=== PATIENT | female | born 1940 | race Caucasian/White ===

== ENCOUNTER 2020-05-05 09:40 | Outpatient (CLI) | payer MEDICARE, SELFPAY ==
--- NOTE | ~2020-05-05 | US_ITS ---
EXAMINATION: US carotid duplex BI DATE: 05/05/2020 10:18 INDICATION: Carotid stenosis TECHNIQUE: Grayscale, color Doppler, and pulsed Doppler images of the cervical carotid arteries were obtained. The degree of vessel stenosis is placed in one of the following categories: normal, <50%, 5 0-69%, >=70% but less than near-occlusion, near-occlusion, or total occlusion. Note that percent sten osis relative to normal distal artery lumen diameter is indirectly measured from velocity measurement s as described by Teodoro, et al. Radiology 2003; 229:340-346. COMPARISON: None. FINDINGS: RIGHT: The right common carotid artery (CCA) peak systolic velocity (PSV) is 72 cm/s. The right internal car otid artery (ICA) PSV is 85 cm/s. The right ICA end-diastolic velocity (EDV) is 20 cm/s. The right IC A/CCA PSV ratio is 12. Grayscale and color Doppler images yield an estimate of <50% diameter reductio n from plaque in the ICA. The external carotid artery (ECA) PSV is 126 cm/s. There is antegrade flow in the right vertebral artery. LEFT: The left CCA PSV is 84 cm/s. The left ICA PSV is 70 cm/s. The left ICA EDV is 20 cm/s. The left ICA/C CA PSV ratio is 0.8. Grayscale and color Doppler images yield an estimate of <50% diameter reduction from minimal plaque in the ICA. The ECA PSV is 688 cm/s. There is antegrade flow in the left vertebra l artery. IMPRESSION: 1. <50% stenosis in the right internal carotid artery. 2. <50% stenosis in the left internal carotid artery. Reviewed, dictated and finalized at location A.
== END 2020-05-05 09:41 | disposition home or self-care (01) ==
PROVIDERS: PCP Family Medicine; Visit Provider Physician Assistant
DX: I65.23 Occlusion and stenosis of bilateral carotid arteries (principal)
CPT/HCPCS: 93880

== ENCOUNTER 2020-09-09 13:43 | Outpatient (CLI) | payer MEDICARE, SELFPAY ==
--- NOTE | ~2020-09-09 | CT_ITS ---
EXAMINATION: CT abdomen pelvis wo/w con DATE: 09/09/2020 14:32 INDICATION: Gross hematuria TECHNIQUE: Computed tomography (CT) of the abdomen and pelvis was performed without and subsequently with 130 cc Omnipaque 350 intravenous contrast. Automated exposure control and iterative reconstructi on technique were employed. Exam dose: 613.15 mGy-cm total exam DLP. COMPARISON: None. FINDINGS: The lung bases are clear of infiltrate or consolidation. Heart size is normal. There is trace pericardial fluid. Coronary artery calcifications. Small sliding hiatal hernia. There is no hepatic suspicious solid mass. There is a small cyst of the lateral segment of the left h epatic lobe. No bile duct dilatation. The gallbladder is unremarkable in appearance. No pancreatic ma ss lesion or calcification or ductal dilatation. Normal splenic size. Normal morphology of the adrenal glands. There is a 7 cm irregular mass of the upper pole of the right kidney most consistent with hypernephro ma. No other urinary tract suspicious mass lesion is evident. There are a couple of small left renal cyst . No hydroureteronephrosis. No urinary tract calculus is evident. Multiple calcified uterine fibroids. There is atherosclerotic calcification but normal caliber of the abdominal aorta. No abdominal aortic aneurysm. No intraperitoneal or retroperitoneal or pelvic mass lesion or adenopathy or ascites is no last otherwise. No bowel obstruction, bowel wall thickening, pneumatosis or intraperitoneal free air is detected. There are degenerative changes of the thoracic and lumbar spine including particularly prominent dege nerative disc disease at L1-2, L3-4 and L4-5. No suspicious osteolytic or osteoblastic lesions are noted. IMPRESSION: 7 cm likely hypernephroma of upper pole of right kidney Small sliding hiatal hernia Small lateral segment left hepatic cyst and a couple of very small left renal cysts Calcified uterine fibroids Reviewed, dictated and finalized at Location A. Dr. Verdin left a detailed report including the finding of 7 cm hypernephroma of the upper pole right k idney on the answering service voicemail for Dr. Olmstead and Jose A Miller on 09/09/2020 at 1705 hours Reviewed, dictated and finalized at location A. HAND IMPRESSION: 7 cm likely hypernephroma of upper pole of right kidney Small sliding hiatal hernia Small lateral segment left hepatic cyst and a couple of very small left renal c ysts Calcified uterine fibroids
[2020-09-09 14:16] LABS: Estimated Glomerular Filt Rate 60
== END 2020-09-09 13:44 | disposition home or self-care (01) ==
LOC: ANHIMG 13:45
PROVIDERS: PCP Family Medicine; Visit Provider Physician Assistant
DX: R31.0 Gross hematuria (principal); K44.9 Diaphragmatic hernia without obstruction or gangrene; D25.9 Leiomyoma of uterus, unspecified
CPT/HCPCS: 74178; Q9967

== ENCOUNTER → 2020-09-19 15:31 | Outpatient (CLI) | payer MEDICARE, SELFPAY ==
--- NOTE | ~2020-09-19 | XR_ITS ---
XR chest 2V DATE: 09/19/2020 16:00 INDICATION: Renal mass TECHNIQUE: PA and lateral views COMPARISON: None FINDINGS: Normal heart size. No hilar or mediastinal enlargement. No pulmonary infiltrate or consol idation, pulmonary vascular congestion or pleural effusion or pneumothorax. Bilateral hyperinflation , consistent with COPD. There is focal soft tissue asymmetric density in the right lateral apical ar ea. Differential diagnosis includes scarring and pulmonary or pleural mass lesion. Comparison with prior chest radiographs or CT thorax dating back 2 or more years or, if unavailable, CT thorax is re commended. Old healed right mid clavicular shaft fracture. There is degenerative spurring and dextroscoliosis of the thoracic spine. Diffuse osteopenia. IMPRESSION: COPD Focal asymmetric density overlying right lateral apical area; comparison with prior chest radiographs or CT thorax is recommended; if not available, consider CT thorax Reviewed, dictated and finalized at location B. D CROP FARMWORKER IMPRESSION: COPD Focal asymmetric density overlying right lateral apical area; comparison with p rior chest radiographs or CT thorax is recommended; if not available, consider CT thorax
== END ==
PROVIDERS: PCP Family Medicine; Visit Provider Urology
DX: N28.89 Other specified disorders of kidney and ureter (principal); J44.9 Chronic obstructive pulmonary disease, unspecified
CPT/HCPCS: 71046

== ENCOUNTER 2020-09-24 15:07 | Outpatient (CLI) | payer MEDICARE, SELFPAY ==
--- NOTE | ~2020-09-24 | MM_ITS ---
EXAMINATION: MM screening francine BI w jessie HISTORY: Screening mammogram TECHNIQUE: Craniocaudal and mediolateral oblique 3-D tomosynthesis images were obtained and synthetic 2-D images were generated. CAD analysis was submitted and interpreted. COMPARISON: 09/05/2019, 04/24/2015 bilateral digital screening mammogram examinations 05/01/2015 diagnostic left digital mammogram BREAST PARENCHYMAL COMPOSITION: The breasts are heterogeneously dense, which may obscure small masses . FINDINGS: There is no evidence of suspicious mass, calcification, or architectural distortion to sugg est malignancy in either breast. There has been no suspicious interval change. IMPRESSION: 1. No mammographic evidence of malignancy. 2. Recommend routine screening mammography in one year. BI-RADS Category 1: Negative Reviewed, dictated and finalized at location A. ERY WRECKER OPERATOR
== END 2020-09-24 15:08 | disposition home or self-care (01) ==
PROVIDERS: PCP Family Medicine; Visit Provider Physician Assistant
DX: Z12.31 Encounter for screening mammogram for malignant neoplasm of breast (principal)
CPT/HCPCS: 77063; 77067

== ENCOUNTER 2020-10-03 11:47 | Outpatient (CLI) | payer MEDICARE, SELFPAY ==
--- NOTE | 2020-10-03 12:54 | ECG_ITS ---
Measurements Intervals Vill[place] Rate: 55 P: 79 IL: 177 QRS: 63 QRSD: 85 T: 65 QT: 375 QTc: 359 Interpretive Statements SINUS BRADYCARDIA INCOMPLETE RIGHT BUNDLE BRANCH BLOCK BASELINE ARTIFACT- I, II, III, AVR, AVL, AVF BORDERLINE ECG Electronically Signed On 10-03-2020 13:00:01 BOTTOM PRESSER by Cristiano Gonzalez D.O.
[2020-10-03 13:15] LABS: Basophils Absolute Auto 0.1 K/mm3 (0.0-0.1); Basophils Percent Auto 0.7 % (0.2-1.2); Eosinophils Absolute Auto 0.1 K/mm3 (0-0.3); Eosinophils Percent Auto 1.6 % (0-4.4); Hematocrit 39.4 % (37.0-47.0); Hemoglobin 12.8 g/dL (12.0-15.0); Immature Granulocyte Absolute 0.02 K/mm3 (0.00-0.031); Immature Granulocyte Percent A 0.3 % (0-0.5); Lymphocytes Absolute Auto 1.69 K/mm3 (0.9-3.2); Lymphocytes Percent Auto 24.2 % (18.3-44.2); Mean Corpuscular HGB Conc 32.5 g/dl (32-36); Mean Corpuscular Hemoglobin 30.9 pg (26-34); Mean Corpuscular Volume 95.2 fl (80-100); Mean Platelet Volume 10.2 fl (7.4-10.4); Monocytes Absolute Auto 0.6 K/mm3 (0.1-0.6); Monocytes Percent Auto 7.9 % (2.6-8.5); Neutrophils Absolute Auto 4.6 K/mm3 (1.3-6.7); Neutrophils Percent Auto 65.3 % (45.5-73.1); Platelet Count Result 222 k/mm3 (150-375); Red Blood Count 4.14 M/mm3 (4.2-5.4); Red Cell Distribution Width 12.4 % (11.5-14.5)
[2020-10-03 13:24] LABS: Alanine Aminotransferase 24 U/L (4-35); Albumin Level 4.4 g/dL (3.5-5.1); Alkaline Phosphatase 70 U/L (38-126); Anion Gap 5 mmol/L (8-16); Aspartate Amino Transferase 34 U/L (14-36); Bilirubin,Total 0.7 mg/dL (0.2-1.3); Blood Urea Nitrogen 16 mg/dL (7-17); Calcium 9.7 mg/dL (8.4-10.2); Carbon Dioxide 33 mmol/L (22-30); Chloride 100 mmol/L (98-107); Estimated Glomerular Filt Rate > 60; Glucose 107 mg/dL (65-105); Potassium 4.5 mmol/L (3.4-5.0); Sodium 138 mmol/L (137-145)
[2020-10-03 13:25] LABS: INR 0.9; Prothrombin Time 12.9 Seconds (11.1-14.7)
[2020-10-03 13:26] LABS: Partial Thromboplastin Time 27.1 SECONDS (22.3-36.8)
== END 2020-10-03 11:48 | disposition home or self-care (01) ==
LOC: ANHSURGERY 11:51
PROVIDERS: PCP Family Medicine; Visit Provider Urology
DX: Z01.818 Encounter for other preprocedural examination (principal); N28.89 Other specified disorders of kidney and ureter; I10 Essential (primary) hypertension; I45.10 Unspecified right bundle-branch block
CPT/HCPCS: 36415; 80053; 85025; 85610; 85730; 86850; 86900; 86901; 87086; 93005

== ENCOUNTER 2020-10-04 00:54 | Outpatient (CLI) | payer MEDICARE, SELFPAY ==
[2020-10-04 19:14] LABS: SARS-CoV-2 RNA PCR Negative
== END 2020-10-04 00:55 | disposition home or self-care (01) ==
LOC: ANHCOVIDDT 00:54
PROVIDERS: PCP Family Medicine; Visit Provider Urology
DX: Z01.818 Encounter for other preprocedural examination (principal); Z20.828 Contact with and (suspected) exposure to other viral communicable diseases
CPT/HCPCS: 87635; C9803; U0003

== ENCOUNTER 2020-10-07 13:03 | Inpatient (IN) | payer MEDICARE, SELFPAY ==
[2020-10-03 12:52] VITALS: BP 147/47; PULSE 57; RESP 16; TEMP 37.2; O2SAT 100; BMI 20.1
[2020-10-07] VITALS (15 sets, daily range): BP systolic 100–159; BP diastolic 47–77; PULSE 45–66; RESP 7–18; TEMP 35.7–37; O2SAT 94–100
--- NOTE | ~2020-10-07 | CT_ITS ---
EXAMINATION: CT abdomen pelvis wo/w con DATE: 10/07/2020 16:01 INDICATION: Patient with postoperative abdominal distention status post hand-assisted laparoscopic ri ght nephrectomy and right adrenalectomy today TECHNIQUE: Computed tomography (CT) of the abdomen and pelvis was performed without intravenous contr ast. CT of the abdomen and pelvis was then performed with a total of 100 mL Omnipaque 350 intravenous contrast. The dose-length product (DLP) was 663.19 mGy-cm. Automated exposure control and iterative reconstruction technique were employed. COMPARISON: 09/09/2020 FINDINGS: Small pleural effusions are present, left greater than right which causes passive dependent atelectasis of the visualized lung bases. Cardiomegaly is noted. There is a moderate amount of free intraperitoneal gas throughout the abdomen. Gas is also seen in the nephrectomy bed, as well as throu ghout the abdominal wall extending into the pelvis and bilateral proximal thighs. There is a moderate ly large crescentic subcutaneous gas collection in the right flank extending into the anterior pelvis . There is a small volume of ascites in the right upper quadrant which tracks into the pelvis. The li juan, spleen, pancreas, gallbladder, and left adrenal gland are normal. Cysts of the left kidney measu re up to 7 mm. No pathologically enlarged abdominal or pelvic lymph nodes are identified. There is a small sliding hiatal hernia. No dilated loops of bowel are evident. The bladder is decompressed by a Antonio catheter. There are calcified uterine fibroids. There is severe lumbar spondylosis. IMPRESSION: 1. Changes of right nephrectomy and adrenalectomy including moderate amount of free intraperitoneal g as, small volume of abdominal and pelvic ascites, and extensive subcutaneous gas throughout the abdom en and pelvis, extending of the proximal thighs, and including a large crescentic gas collection of t he right flank extending into the anterior pelvis. Reviewed, dictated and finalized at location A. KER AND CUTTER CONTACT LENS IMPRESSION: 1. Changes of right nephrectomy and adrenalectomy including moderate amount of free intraperitoneal gas, small volume of abdominal and pelvic ascites, and ext ensive subcutaneous gas throughout the abdomen and pelvis, extending of the pro ximal thighs, and including a large crescentic gas collection of the right flan k extending into the anterior pelvis.
[2020-10-07] MEDS: LACTATED RINGERS 1,000 ML 30 ML IV CONT ×2 (06:20→10:27)
--- NOTE | 2020-10-07 06:53 | WPDHPUPDATE1 ---
History and Physical Update Update Date/Time: 10/07/20 06:53 History and Physical has been reviewed, including an updated exam of the patient. There are NO changes in the patient's condition. Risks, benefits, and alternatives have been discussed and questions answered. Patient agrees to proceed with procedure. Proceed with GALLITO right nephrectomy
--- NOTE | 2020-10-07 06:57 | WPDANESEPPF ---
Anes - Initial Pre Proc Eval Procedure: Operation Date: 10/07/20 07:30 Proposed Procedures p Hand-Assisted Laparoscopic Right Radical Nephrectomy - Jabier Mendoza MD Date/Time: 10/07/20 06:57 Surgeon: Jabier Mendoza MD Pre Op Diagnosis: Right Kidney Mass Patient Data Age: 79 Gender: F Height: 5 ft 5 in Weight: 53.8 kg Last Vital Signs Temp 99.0 F 10/03/20 12:52 Pulse 57 L 10/03/20 12:52 Resp 16 10/03/20 12:52 BP 147/47 H 10/03/20 12:52 Pulse Ox 100 10/03/20 12:52 Allergies Allergy/AdvReac Type Severity Reaction Status Date / Time No Known Allergies Allergy Unknown Verified 10/07/20 06:00 Home Medications Medication Instructions Recorded Confirmed Type valsartan 160 mg tablet 160 mg PO DAILY #90 tablet 02/05/20 10/07/20 Rx levothyroxine 75 mcg tablet 75 mcg PO DAILY #90 tablet 03/03/20 10/07/20 Rx alendronate 70 mg tablet 70 mg PO WEEKLY #12 tablet 08/04/20 10/07/20 Rx acebutolol 200 mg PO HS 10/03/20 10/07/20 History aspirin [Adult Low Dose Aspirin] 81 mg PO EVERY OTHER DAY 10/03/20 10/07/20 History atorvastatin 20 mg PO HS 10/03/20 10/07/20 History calcium 1 mg PO HS 10/03/20 10/07/20 History cholecalciferol (vitamin D3) 25 mcg PO HS 10/03/20 10/07/20 History multivitamin,nm-xteo-bvrjonuq 1 tablet PO HS 10/03/20 10/07/20 History [Complete Multivitamin] omega-3 fatty acids-fish oil [Fish 1 cap PO HS 10/03/20 10/07/20 History Oil] polyethylene glycol 3350 [Miralax] 17 g PO EVERY OTHER DAY 10/03/20 10/07/20 History Patient hx anesthesia problems: none Family hx anesthesia problems: none PMFSH Past Medical History Medical History (Updated 10/07/20 @ 07:04 by Jair Self MD) Essential (primary) hypertension Hyperlipidemia, unspecified Hypothyroidism, unspecified Family History Family History Father Family history of cardiovascular disease, Onset Age: 79 Mother Family history of malignant neoplasm of brain, Onset Age: 56 Social History Social History Smoking status: Never smoker Living arrangements: with family Spiritual care concerns: No Anes - Eval Final PreProcedure Day of Procedure 10/07/20 06:57 Patient weight: normal Heart: regular rate and rhythm Lungs: clear to auscultation Airway: Mallampati scale class II Neurological: alert and oriented Last oral intake: >/= 8 hours ASA classification: III Emergent: no Anesthetic plan: proceed Anesthesia type and monitoring: general ETT and standard monitoring Informed Consent: The patient's anesthetic plan and its attendant risks and benefits were discussed with the patient/family/POA. Questions were solicited and answers provided to the satisfaction of the patient/family/POA.
[2020-10-07] MEDS: ceFAZolin 2 GM/D5W 50 ML 2 GM/50 ML BAG IVPB (07:24)
[2020-10-07] MEDS: BUPIVACAINE HCL 0.5% PF 30 ML VIAL INFILTRATE (08:09)
--- NOTE | 2020-10-07 10:12 | PM.PROC ---
Procedure Note - Detailed Date of procedure: 10/07/20 Pre-op diagnosis: Right Kidney Mass Post-op diagnosis: same Procedure performed: Hand assisted laparoscopic right nephrectomy Description of procedure: Patient is taken the operative suite and correctly identified. Once anesthesia was obtained and a Antonio catheter was placed she was placed in the lateral decubitus position right side up. She was prepped draped usual sterile fashion. All pressure points were padded and axillary roll was placed. An incision was made around the umbilicus and carried down to the rectus fascia. The peritoneum was incised. The GelPort was placed. Inspection of the abdomen revealed some adhesions which were taken down. We then placed 2 other working ports in. Patient is extremely thin and centrally could only place my hand into her abdomen. Nonetheless we were able to reflect the colon and duodenum. Patient had 2 renal veins which were isolated. The artery was posterior to the superior vein. Using a endovascular staple we transected the inferior vein. The artery was then dissected free. Clips were placed proximally and distally. Three clips proximally. The artery was then transected. The other vein was then transected using an endovascular stapler. We mobilized the kidney inferiorly and and clipped the ureter. It was lifted off the psoas muscle. It was then freed from its attachments laterally and superiorly. The tumor was located in the upper. The adrenal gland was taken with the specimen. Hemostasis was adequate at termination procedure. We did place some Tisseel and Surgicel over the hilar area. All lap count needle count sponge counts correct. The specimen was brought out through the midline incision. Rectus fascia was closed using double looped PDS. Skin was closed using subcuticular suture. Patient tolerated procedure well without any complications taken recovery in stable condition. Anesthesia: GETA Surgeon: Jabier Mendoza MD Estimated blood loss (mL): 100 Drains: Yes Packing: No Pathology: yes Complications: No immediate complications Condition: stable Disposition: PACU
[2020-10-07] MEDS: fentaNYL CITRATE INJ (*CRX) 100 MCG/2 ML VIAL 25 MCG IV PUSH ×6 (10:38→12:06)
--- NOTE | 2020-10-07 12:50 | ADMGEN ---
This patient, Patti Sullivan, was admitted to Medical Room 253-01. Patient/family oriented to hospital policies and general routines including ID bracelet, bed and alarms, visiting hours, pain management, procedures, bathroom and other care routines, personal items, smoking policy, room service/diet, and visiting hours. Information on how to activate the Rapid Response Team has been discussed. Patient/Family are encouraged to report perceived risks to care and to ask questions if they do not understand what they are told or what they should do.
[2020-10-07] MEDS: DEXTROSE 5%/LACTATED RINGERS 1,000 ML 150 ML IV CONT ×2 (12:52→20:03)
[2020-10-07 13:39] LABS: Hematocrit 36.2 % (37.0-47.0); Hemoglobin 12.1 g/dL (12.0-15.0)
[2020-10-07 13:51] LABS: Anion Gap 5 mmol/L (8-16); Blood Urea Nitrogen 16 mg/dL (7-17); Calcium 8.7 mg/dL (8.4-10.2); Carbon Dioxide 29 mmol/L (22-30); Chloride 103 mmol/L (98-107); Estimated CRCL calculation 37 ml/min; Estimated Glomerular Filt Rate 60; Glucose 174 mg/dL (65-105); Sodium 137 mmol/L (137-145)
[2020-10-07] MEDS: HYDROmorphone HCL INJ (*CRX) 1 MG/ML SYR 0.5 MG IV PUSH ×2 (13:58→20:08)
--- NOTE | 2020-10-07 14:32 | SUR.PHASEI ---
1130 PATIENT C/O'D LOWER ABDOMINAL PRESSURE; ABDOMEN SOFT. LUNGS CLEAR. NO SHORTNESS OF BREATH. JAMES CATHETER DRAINING SMALL AMOUNT CLEAR SALOMÓN URINE. DR. JARAMILLO CALLED; INSTRUCTED TO FLUSH JAMES CATHETER WITH NS. PT FELT SOMEWHAT BETTER AFTER F/C FLUSHED. URINE OUTPUT 110 CLEAR SALOMÓN WHILE IN PACU.
[2020-10-07 15:49] LABS: Hemoglobin 11.7 g/dL (12.0-15.0)
[2020-10-07] MEDS: VALSARTAN 160 MG TABLET PO (17:16)
[2020-10-07] MEDS: DOCUSATE SODIUM 100 MG CAPSULE PO (17:24)
[2020-10-07] MEDS: ATORVASTATIN 20 MG TABLET PO (20:04)
[2020-10-08 02:00] VITALS: BP 122/47; PULSE 69; RESP 16; TEMP 36.9; O2SAT 94
[2020-10-08] MEDS: DEXTROSE 5%/LACTATED RINGERS 1,000 ML 150 ML IV CONT ×2 (03:16→10:31)
[2020-10-08] MEDS: HYDROmorphone HCL INJ (*CRX) 1 MG/ML SYR 0.5 MG IV PUSH (03:19)
[2020-10-08 05:29] VITALS: BP 149/59; PULSE 60; RESP 18; TEMP 36.9; O2SAT 97
[2020-10-08] MEDS: ONDANSETRON INJ 4 MG/2 ML VIAL IV PUSH (05:41)
[2020-10-08] MEDS: LEVOTHYROXINE SODIUM 75 MCG TABLET PO (05:41)
[2020-10-08 05:57] LABS: Basophils Percent Auto 0.2 % (0.2-1.2); Eosinophils Percent Auto 0.1 % (0-4.4); Hematocrit 34.2 % (37.0-47.0); Hemoglobin 11.3 g/dL (12.0-15.0); Immature Granulocyte Absolute 0.01 K/mm3 (0.00-0.031); Immature Granulocyte Percent A 0.1 % (0-0.5); Lymphocytes Percent Auto 12.1 % (18.3-44.2); Mean Platelet Volume 10.2 fl (7.4-10.4); Monocytes Absolute Auto 0.8 K/mm3 (0.1-0.6); Monocytes Percent Auto 9.3 % (2.6-8.5); Neutrophils Absolute Auto 6.4 K/mm3 (1.3-6.7); Neutrophils Percent Auto 78.2 % (45.5-73.1); Platelet Count Result 174 k/mm3 (150-375); Red Blood Count 3.64 M/mm3 (4.2-5.4); Red Cell Distribution Width 12.5 % (11.5-14.5); White Blood Count 8.2 K/mm3 (4.5-10.0)
[2020-10-08 05:59] LABS: Anion Gap 3 mmol/L (8-16); Blood Urea Nitrogen 13 mg/dL (7-17); Calcium 8.3 mg/dL (8.4-10.2); Carbon Dioxide 30 mmol/L (22-30); Chloride 102 mmol/L (98-107); Estimated CRCL calculation 33 ml/min; Estimated Glomerular Filt Rate 53; Glucose 151 mg/dL (65-105); Sodium 135 mmol/L (137-145)
--- NOTE | 2020-10-08 07:32 | WPDANESPN ---
Anes - Prog Note Post-Op Date/Time: 10/08/20 07:32 Cardiovascular status: normal Respiratory status: normal Airway patency: baseline Mental status: baseline Post-Op hydration status: normal Vital Signs: Last Vital Signs Temp 36.9 C 10/08/20 05:29 Pulse 60 10/08/20 05:29 Resp 18 10/08/20 05:29 BP 149/59 H 10/08/20 05:29 Pulse Ox 97 10/08/20 05:29 Pain Score (VAS): talked with patient no complaints of pain I/O: Intake & Output 10/07/20 10/07/20 10/08/20 15:59 23:59 07:59 Intake Total 650 1050 1200 Output Total 110 550 Balance 540 1050 650 Laboratory Tests 10/08/20 05:26 10/08/20 05:26 10/07/20 10/07/20 10/07/20 13:21 13:21 15:39 WBC RBC Hgb 12.1 11.7 L Hct 36.2 L 35.0 L MCV MCH MCHC RDW Plt Count MPV Immature Gran % (Auto) Neut % (Auto) Lymph % (Auto) Bartholomew % (Auto) Eos % (Auto) Baso % (Auto) Lymph # (Auto) Bartholomew # (Auto) Eos # (Auto) Baso # (Auto) Abs Immat Gran (auto) Absolute Neuts (auto) Absolute Nucleated RBC Nucleated RBC % Sodium 137 Potassium 4.0 Chloride 103 Carbon Dioxide 29 Anion Gap 5 L BUN 16 Creatinine 0.90 Estim Creat Clear Calc 37 Estimated GFR 60 Glucose 174 H Calcium 8.7 10/08/20 10/08/20 05:26 05:26 WBC 8.2 RBC 3.64 L Hgb 11.3 L Hct 34.2 L MCV 94.0 MCH 31.0 MCHC 33.0 RDW 12.5 Plt Count 174 MPV 10.2 Immature Gran % (Auto) 0.1 Neut % (Auto) 78.2 H Lymph % (Auto) 12.1 L Bartholomew % (Auto) 9.3 H Eos % (Auto) 0.1 Baso % (Auto) 0.2 Lymph # (Auto) 1.00 Bartholomew # (Auto) 0.8 H Eos # (Auto) 0.0 Baso # (Auto) 0.0 Abs Immat Gran (auto) 0.01 Absolute Neuts (auto) 6.4 Absolute Nucleated RBC 0.0 Nucleated RBC % 0.0 Sodium 135 L Potassium 4.0 Chloride 102 Carbon Dioxide 30 Anion Gap 3 L BUN 13 Creatinine 1.00 Estim Creat Clear Calc 33 Estimated GFR 53 L Glucose 151 H Calcium 8.3 L Post-procedural complaints: none Patient Feedback: Patient satisfied with anesthetic care.
[2020-10-08] MEDS: DOCUSATE SODIUM 100 MG CAPSULE PO ×2 (08:51→16:54)
[2020-10-08] MEDS: VALSARTAN 160 MG TABLET PO (08:51)
[2020-10-08 08:55] VITALS: RESP 18; O2SAT 98
[2020-10-08] MEDS: HYDROcodone/acetaminophen (*CRX) 5-325 MG TABLET 1 TAB PO ×2 (08:55→16:53)
[2020-10-08 10:05] VITALS: BP 125/51; PULSE 65; RESP 18; TEMP 36.9; O2SAT 93
--- NOTE | 2020-10-08 11:13 | WPDUROPN2 ---
Progress Note: A&P Assessment and Plan (1) Renal mass, right: Code(s): N28.89 - Other specified disorders of kidney and ureter Status: Acute Assessment and Plan: Patient tolerating diet and activity well. Her CT scan showed gas in the RLQ, H&H is stable. Will monitor patient throughout the day, remove gaston catheter. IF able to tolerate solid foods she is ok to go home. Subjective Subjective Date/Time Seen: 10/08/20 11:13 POD #1 Hand assisted laparoscopic right nephrectomy Review of Systems Cardiovascular: Cardiovascular: Denies chest pain Respiratory: Respiratory: Reports no additional respiratory complaints Gastrointestinal: Gastrointestinal: Denies abdominal pain, Denies nausea and Denies vomiting Genitourinary: Genitourinary: Denies hematuria Exam HENMT: Ears: hearing grossly impaired bilaterally Resp: Effort & Inspection: normal respiratory effort Cardio: Rate: regular rate GI: Inspection: incision (all are well approximated, no drainage or edema present) and other (RLQ was slightly distended last night, resolved this morning, crepitus felt) GI Palp: Yes Soft to palpation and No Tenderness to palpation present (GI) : General: Yes no CVA tenderness Urinary Catheter: Urinary Catheter: patent and draining and urine clear Extrem: General: no edema Objective Data Vital Signs Vital Signs: Vital Signs - 24 hr 10/07/20 11:20 10/07/20 11:35 10/07/20 11:50 Temperature 97 F L Pulse Rate 49 L 49 L 48 L Respiratory Rate 13 13 15 Blood Pressure 148/62 H 156/64 H 156/64 H Pulse Oximetry 95 97 97 10/07/20 12:05 10/07/20 12:20 10/07/20 12:35 Temperature 96.2 F L 96.5 F L Pulse Rate 51 L 45 L 54 L Respiratory Rate 11 L 18 18 Blood Pressure 159/61 H 159/47 H 147/53 H Pulse Oximetry 94 98 97 10/07/20 13:05 10/07/20 14:05 10/07/20 18:05 Temperature 97.4 F L 97.0 F L 98.0 F Pulse Rate 56 L 60 65 Respiratory Rate 18 18 16 Blood Pressure 151/49 H 152/52 H 100/64 Pulse Oximetry 97 98 96 10/07/20 22:00 10/08/20 02:00 12/09/20 05:29 Temperature 98.6 F 98.4 F 98.5 F Pulse Rate 66 69 60 Respiratory Rate 16 16 18 Blood Pressure 129/48 L 122/47 L 149/59 H Pulse Oximetry 97 94 97 10/08/20 08:55 Temperature Pulse Rate Respiratory Rate 18 Blood Pressure Pulse Oximetry 98 Intake/Output Intake/Output: Intake & Output 10/05/20 10/06/20 10/07/20 10/08/20 23:59 23:59 23:59 23:59 Intake Total 1750 2650 Output Total 110 550 Balance 1640 2100 Meds/Results Medications: Active Medications Generic Name Dose Route Start Last Admin Trade Name Freq PRN Reason Stop Dose Admin Hydrocodone Bitart/Acetaminophen 1 tab 10/08/20 05:00 10/08/20 08:55 Hydrocodone/Acetaminophen (*Crx) 5-325 Mg Tablet PO 1 tab Q4H PRN Administration Pain Rated 1-3 Hydrocodone Bitart/Acetaminophen 2 tab 10/08/20 05:00 Hydrocodone/Acetaminophen (*Crx) 5-325 Mg Tablet PO Q4H PRN Pain Rated 4-6 Atorvastatin Calcium 20 mg 10/07/20 21:00 10/07/20 20:04 Atorvastatin 20 Mg Tablet PO 20 mg HS MARGARET Administration Cephalexin HCl 500 mg 10/08/20 12:00 Cephalexin 500 Mg Capsule PO Q6HR MARGARET Docusate Sodium 100 mg 10/07/20 17:00 10/08/20 08:51 Docusate Sodium 100 Mg Capsule PO 100 mg BID MARGARET Administration Hydromorphone HCl 0.5 mg 10/07/20 12:20 10/08/20 03:19 Hydromorphone Hcl Inj (*Crx) 1 Mg/Ml Syr IV PUSH 0.5 mg Q4H PRN Administration Pain Rated 7-10 Dextrose/Lactated Ringer's 1,000 mls @ 150 mls/hr 10/07/20 12:20 10/08/20 10:31 Dextrose 5%/Lactated Ringers IV CONT 150 mls/hr .Q6H40M MARGARET Administration Levothyroxine Sodium 75 mcg 10/08/20 06:30 10/08/20 05:41 Levothyroxine Sodium 75 Mcg Tablet PO 75 mcg DAILY@0630 MARGARET Administration Naloxone HCl 0.1 mg 10/07/20 12:20 Naloxone Hcl 0.4 Mg/Ml Vial IV PUSH Q2M PRN Opiate Reversal Ondansetron HCl 4 mg 10/07/20 12:20 10/08
[2020-10-08] MEDS: CEPHALEXIN 500 MG CAPSULE PO ×2 (12:25→17:14)
[2020-10-08 14:05] VITALS: BP 138/59; PULSE 64; RESP 18; TEMP 36.9; O2SAT 95
[2020-10-08] MEDS: ATORVASTATIN 20 MG TABLET PO (20:38)
[2020-10-08 22:00] VITALS: BP 137/60; PULSE 66; RESP 18; TEMP 37.1; O2SAT 94
[2020-10-09] MEDS: CEPHALEXIN 500 MG CAPSULE PO ×2 (00:30→06:35)
[2020-10-09 02:00] VITALS: BP 149/55; PULSE 66; RESP 16; TEMP 36.9; O2SAT 95
[2020-10-09 05:05] VITALS: BP 122/90; PULSE 71; RESP 18; TEMP 36.6; O2SAT 94
[2020-10-09 05:38] LABS: Hematocrit 34.8 % (37.0-47.0); Hemoglobin 11.5 g/dL (12.0-15.0); Mean Corpuscular Volume 93.8 fl (80-100); Mean Platelet Volume 10.2 fl (7.4-10.4); Platelet Count Result 165 k/mm3 (150-375); Red Blood Count 3.71 M/mm3 (4.2-5.4); Red Cell Distribution Width 12.6 % (11.5-14.5); White Blood Count 7.2 K/mm3 (4.5-10.0)
[2020-10-09 05:57] LABS: Anion Gap 2 mmol/L (8-16); Blood Urea Nitrogen 11 mg/dL (7-17); Calcium 8.6 mg/dL (8.4-10.2); Carbon Dioxide 33 mmol/L (22-30); Chloride 101 mmol/L (98-107); Estimated CRCL calculation 30 ml/min; Estimated Glomerular Filt Rate 48; Glucose 107 mg/dL (65-105); Potassium 3.9 mmol/L (3.4-5.0); Sodium 136 mmol/L (137-145)
[2020-10-09] MEDS: LEVOTHYROXINE SODIUM 75 MCG TABLET PO (06:35)
[2020-10-09] MEDS: DOCUSATE SODIUM 100 MG CAPSULE PO (08:20)
[2020-10-09] MEDS: VALSARTAN 160 MG TABLET PO (08:20)
--- NOTE | 2020-10-09 09:09 | WPDUROPN2 ---
Progress Note: A&P Assessment and Plan (1) Renal mass, right: Code(s): N28.89 - Other specified disorders of kidney and ureter Status: Acute Assessment and Plan: Okay to go home today, will plan to follow up in the office next week. Subjective Subjective Date/Time Seen: 10/09/20 09:09 POD #2 Hand assisted laparoscopic right nephrectomy Tolerating diet, sleeping well, pain is under control. Review of Systems Cardiovascular: Cardiovascular: Denies chest pain Respiratory: Respiratory: Reports no additional respiratory complaints Gastrointestinal: Gastrointestinal: Reports abdominal pain, Denies nausea and Denies vomiting Genitourinary: Genitourinary: Denies hematuria, Denies dysuria, Denies flank pain and Denies urinary urgency Exam Resp: Effort & Inspection: normal respiratory effort Cardio: Rate: regular rate GI: Inspection: incision (all are well approximated, no drainage or edema present) GI Palp: Yes Soft to palpation and Yes Tenderness to palpation present (GI) (at incisions sites only) Extrem: General: no edema Objective Data Vital Signs Vital Signs: Vital Signs - 24 hr 10/08/20 10:05 10/08/20 14:05 10/08/20 22:00 Temperature 98.4 F 98.5 F 98.7 F Pulse Rate 65 64 66 Respiratory Rate 18 18 18 Blood Pressure 125/51 L 138/59 L 137/60 Pulse Oximetry 93 95 94 10/09/20 02:00 10/09/20 05:05 Temperature 98.4 F 97.8 F Pulse Rate 66 71 Respiratory Rate 16 18 Blood Pressure 149/55 H 122/90 Pulse Oximetry 95 94 Intake/Output Intake/Output: Intake & Output 10/06/20 10/07/20 10/08/20 10/09/20 23:59 23:59 23:59 23:59 Intake Total 1750 4927 550 Output Total 097 841 9937 Balance 1640 9336 -729 Meds/Results Medications: Active Medications Generic Name Dose Route Start Last Admin Trade Name Freq PRN Reason Stop Dose Admin Hydrocodone Bitart/Acetaminophen 1 tab 10/08/20 05:00 10/08/20 16:53 Hydrocodone/Acetaminophen (*Crx) 5-325 Mg Tablet PO 1 tab Q4H PRN Administration Pain Rated 1-3 Hydrocodone Bitart/Acetaminophen 2 tab 10/08/20 05:00 Hydrocodone/Acetaminophen (*Crx) 5-325 Mg Tablet PO Q4H PRN Pain Rated 4-6 Atorvastatin Calcium 20 mg 10/07/20 21:00 10/08/20 20:38 Atorvastatin 20 Mg Tablet PO 20 mg HS MARGARET Administration Cephalexin HCl 500 mg 10/08/20 12:00 10/09/20 06:35 Cephalexin 500 Mg Capsule PO 500 mg Q6HR MARGARET Administration Docusate Sodium 100 mg 10/07/20 17:00 10/09/20 08:20 Docusate Sodium 100 Mg Capsule PO 100 mg BID MARGARET Administration Hydromorphone HCl 0.5 mg 10/07/20 12:20 10/08/20 03:19 Hydromorphone Hcl Inj (*Crx) 1 Mg/Ml Syr IV PUSH 0.5 mg Q4H PRN Administration Pain Rated 7-10 Levothyroxine Sodium 75 mcg 10/08/20 06:30 10/09/20 06:35 Levothyroxine Sodium 75 Mcg Tablet PO 75 mcg DAILY@0630 MARGARET Administration Naloxone HCl 0.1 mg 10/07/20 12:20 Naloxone Hcl 0.4 Mg/Ml Vial IV PUSH Q2M PRN Opiate Reversal Ondansetron HCl 4 mg 10/07/20 12:20 10/08/20 05:41 Ondansetron Inj 4 Mg/2 Ml Vial IV PUSH 4 mg Q6H PRN Administration Nausea And Vomiting Valsartan 160 mg 10/07/20 09:00 10/09/20 08:20 Valsartan 160 Mg Tablet PO 160 mg DAILY MARGARET Administration Radiology Results: ITS Impressions Abdomen/Pelvis CT 10/07/20 16:08 IMPRESSION: 1. Changes of right nephrectomy and adrenalectomy including moderate amount of free intraperitoneal gas, small volume of abdominal and pelvic ascites, and extensive subcutaneous gas throughout the abdomen and pelvis, extending of the proximal thighs, and including a large crescentic gas collection of the right flank extending into the anterior pelvis. Labs Labs: Laboratory Results - last 24 hr 10/09/20 10/09/20 05:15 05:15 WBC 7.2 RBC 3.71 L Hgb 11.5 L Hct 34.8 L MCV 93.8 MCH 31.0 MCHC 33.0 RDW 12.6 Plt Count 165 MPV 10.2 Sodium 136 L Potassium
--- NOTE | 2020-10-09 13:16 | PM.DS ---
DS: Admitting Diagnosis Admitting Diagnosis Admitting Diagnosis: Right Kidney Mass DS: Summary Time Spent with Patient Time attestation: Pre-OP diagnosis: Right Kidney Mass Post-Op diagnosis: Right Kidney Mass Patient underwent a hand assisted laparoscopic right nephrectomy with Dr. Ofelia Mendoza on 10/07/2020. She tolerated the procedure well, went to recovery in stable condition, then to the floor for further observation. She did well over the past two days and increased her diet to solid foods and tolerated it well. No bowel movement, but pain is well controlled. Patient is ok to go home today and can resume all previous home medications, start Bactrim and Hydrocodone. Acvtivity as tolerated. Exam Resp: Effort & Inspection: normal respiratory effort Cardio: Rate: regular rate GI: Inspection: incision (well approximated, no drainage or edema present) GI Palp: Yes Soft to palpation and Yes Tenderness to palpation present (GI) Extrem: General: no edema DS: Data Data Completed and Pending Completed studies during hospitalization: Pending at discharge 10/07/20 09:58 Surgical [PTH] Routine Labs on day of discharge: Labs from last 24 hours 10/09/20 10/09/20 05:15 05:15 WBC 7.2 RBC 3.71 L Hgb 11.5 L Hct 34.8 L MCV 93.8 MCH 31.0 MCHC 33.0 RDW 12.6 Plt Count 165 MPV 10.2 Sodium 136 L Potassium 3.9 Chloride 101 Carbon Dioxide 33 H Anion Gap 2 L BUN 11 Creatinine 1.10 H Estim Creat Clear Calc 30 Estimated GFR 48 L Glucose 107 H Calcium 8.6 Discharge Plan Discharge Attending physician on discharge: Jabier Mendoza Discharging Clinician: Kimberly Manjarrez Anticipated Discharge Date/Time: 10/09/20 09:12 Patient Disposition: Home, Self-Care Activity: may shower, no straining and no driving Diet: as tolerated Wound Care Instructions: incision open to air Discharge Instructions: Call office to report incision drainage, redness or edema, fevers of >102 or any other questions or concerns. Follow up next week as planned in the office. Patient Instructions: Antonio Catheter Placement and Care (ED), Laparoscopic Radical Nephrectomy (DC) Follow-up/Referrals: Jabier Mendoza MD [Physician] - Discharge Medications: New hydrocodone-acetaminophen 5-325 mg Tablet 2 tab PO Q4H PRN (Reason: Pain Rated 4-6) 5 Days Qty: 20 RF: 0 sulfamethoxazole-trimethoprim [Bactrim DS] 800-160 mg tablet 1 tablet PO DAILY Qty: 3 RF: 0 Continued atorvastatin 20 mg tablet 20 mg PO HS RF: 0 acebutolol 200 mg capsule 200 mg PO HS RF: 0 Complete Multivitamin Tablet 1 tablet PO HS RF: 0 cholecalciferol (vitamin D3) 25 mcg (1,000 unit) Tablet 25 mcg PO HS RF: 0 omega-3 fatty acids-fish oil [Fish Oil] 360-1,200 mg Capsule 1 cap PO HS RF: 0 aspirin 81 mg Tablet 81 mg PO EVERY OTHER DAY RF: 0 calcium 600 mg Capsule 1 mg PO HS RF: 0 polyethylene glycol 3350 [Miralax] 17 gram Powder In Packet 17 g PO EVERY OTHER DAY RF: 0 valsartan 160 mg tablet 160 mg PO DAILY Qty: 90 RF: 3 levothyroxine 75 mcg tablet 75 mcg PO DAILY Qty: 90 RF: 3 alendronate 70 mg tablet 70 mg PO WEEKLY Qty: 12 RF: 3 Date of admission: 10/07/20 13:03 Primary Care Provider: Hunter Olmstead Admitting Provider: Jabier Mendoza Attending physician on admission: Jabier Mendoza
== END 2020-10-09 11:00 | disposition home or self-care (01) | DRG 658 ==
LOC: ANH2MED 13:03 → ANHSURGERY 10-08 15:07 → ANH2MED 10-09 09:15
PROVIDERS: Admitting Provider Urology; PCP Family Medicine; Visit Provider Nurse Practitioner Adult Health
PROC: 0TT00ZZ Resection of Right Kidney, Open Approach (ICD-10-PCS; principal; 2020-10-07 07:30)
DX: C64.1 Malignant neoplasm of right kidney, except renal pelvis (principal); I10 Essential (primary) hypertension; E78.5 Hyperlipidemia, unspecified; E03.9 Hypothyroidism, unspecified
CPT/HCPCS: 36415; 74178; 80048; 85014; 85018; 85025; 85027; 88307; A9270; C9803; J0690; J1100; J1170; J2405; J2704; J2710; J3010; J7120; J7121; Q9967; U0003

== ENCOUNTER 2020-11-11 13:03 | Outpatient (CLI) | payer MEDICARE, SELFPAY ==
--- NOTE | ~2020-11-11 | CT_ITS ---
EXAMINATION:CT chest w con DATE: 11/11/2020 13:47 INDICATION: Renal cell carcinoma. TECHNIQUE: Computed tomography (CT) of the chest was performed with 75 mL Omnipaque 350 intravenous c ontrast. Automated exposure control and iterative reconstruction technique were employed. The dose-le ngth product (DLP) was 131.72 mGy-cm. COMPARISON: CT abdomen and pelvis 10/07/2020 FINDINGS: There is symmetric scarring at the lung apices. Calcified right lung nodules and calcified right hilar and mediastinal lymph nodes are consistent with old granulomatous disease. There are a fe w 1-2 mm nodules in the lungs. There is a 6 mm pleural-based nodule in left lung upper lobe. No pleur al effusion. The heart size is normal. There is a small pericardial effusion. There are changes of ri ght nephrectomy and adrenalectomy. There is an old healed fracture of right clavicle. There is mild t horacic spondylosis. IMPRESSION: 1. Pulmonary nodules measuring up to 6 mm, probably benign. Consider noncontrast low-dose chest CT in 6 months. 2. Small pericardial effusion. Reviewed, dictated and finalized at location A. ERTIBLE SOFA BEDSPRING TESTER IMPRESSION: 1. Pulmonary nodules measuring up to 6 mm, probably benign. Consider noncontras t low-dose chest CT in 6 months. 2. Small pericardial effusion.
[2020-11-11 13:38] LABS: Estimated Glomerular Filt Rate 43
== END 2020-11-11 13:04 | disposition home or self-care (01) ==
PROVIDERS: PCP Family Medicine; Visit Provider Internal Medicine Hematology & Oncology
DX: C64.2 Malignant neoplasm of left kidney, except renal pelvis (principal); I31.3 Pericardial effusion (noninflammatory); R91.8 Other nonspecific abnormal finding of lung field
CPT/HCPCS: 71260; Q9967

== ENCOUNTER 2021-03-05 12:17 | Outpatient (CLI) | payer MEDICARE, SELFPAY ==
--- NOTE | ~2021-03-05 | CT_ITS ---
EXAMINATION: CT abdomen pelvis w con INDICATION: History of renal cell carcinoma status post right nephrectomy TECHNIQUE: Computed tomographic images of the abdomen and pelvis were obtained after the administrati on of 100 cc of Omnipaque 350 intravenous contrast. The dose-length product (DLP) was 204.17 mGy-cm. Automated exposure control and iterative reconstruction technique were employed. COMPARISON: 10/07/2020, 09/09/2020 FINDINGS: Minimal dependent atelectasis is present in the lung bases. The heart size is normal. There are changes of right nephrectomy and right adrenalectomy. The liver, spleen, pancreas, gallbladder, and left adrenal gland are normal. Cysts of the left kidney measure up to 7 mm.. No pathologically en larged abdominal or pelvic lymph nodes are identified. There is no free intraperitoneal gas or eviden ce of bowel obstruction. A large volume of colonic stool is present. Calcified uterine fibroids are n oted. There is severe lumbar spondylosis. IMPRESSION: 1. Changes of right nephrectomy and right adrenalectomy without evidence of recurrent or metastatic d isease. Reviewed, dictated and finalized at location A. IMPRESSION: 1. Changes of right nephrectomy and right adrenalectomy without evidence of rec urrent or metastatic disease.
[2021-03-05 13:02] LABS: Estimated Glomerular Filt Rate 43
== END 2021-03-05 12:18 | disposition home or self-care (01) ==
PROVIDERS: PCP Family Medicine; Visit Provider Internal Medicine Hematology & Oncology
DX: C64.2 Malignant neoplasm of left kidney, except renal pelvis (principal)
CPT/HCPCS: 74177; Q9967

== ENCOUNTER 2021-03-11 09:25 | Outpatient (CLI) | payer MEDICARE, SELFPAY ==
[2021-03-11 09:55] LABS: Basophils Absolute Auto 0.1 K/mm3 (0.0-0.1); Basophils Percent Auto 0.8 % (0.2-1.2); Eosinophils Absolute Auto 0.4 K/mm3 (0-0.3); Eosinophils Percent Auto 4.6 % (0-4.4); Hematocrit 35.2 % (37.0-47.0); Hemoglobin 11.5 g/dL (12.0-15.0); Immature Granulocyte Absolute 0.02 K/mm3 (0.00-0.031); Immature Granulocyte Percent A 0.3 % (0-0.5); Lymphocytes Percent Auto 25.6 % (18.3-44.2); Mean Corpuscular HGB Conc 32.7 g/dl (32-36); Mean Corpuscular Hemoglobin 30.1 pg (26-34); Mean Corpuscular Volume 92.1 fl (80-100); Mean Platelet Volume 9.8 fl (7.4-10.4); Monocytes Absolute Auto 0.6 K/mm3 (0.1-0.6); Monocytes Percent Auto 7.3 % (2.6-8.5); Neutrophils Absolute Auto 4.8 K/mm3 (1.3-6.7); Neutrophils Percent Auto 61.4 % (45.5-73.1); Platelet Count Result 214 k/mm3 (150-375); Red Blood Count 3.82 M/mm3 (4.2-5.4); Red Cell Distribution Width 12.4 % (11.5-14.5); White Blood Count 7.8 K/mm3 (4.5-10.0)
[2021-03-11 09:58] LABS: Blood Urea Nitrogen 33 mg/dL (8-26); Carbon Dioxide 28 mmol/L (22-30); Chloride 100 mmol/L (98-109); Estimated Glomerular Filt Rate 39; Glucose 98 mg/dL (70-105); Sodium 134 mmol/L (138-146)
[2021-03-11 11:22] LABS: Alanine Aminotransferase 29 U/L (4-35); Albumin Level 4.3 g/dL (3.5-5.1); Alkaline Phosphatase 58 U/L (38-126); Anion Gap 4 mmol/L (8-16); Aspartate Amino Transferase 38 U/L (14-36); Bilirubin,Total 0.5 mg/dL (0.2-1.3); Blood Urea Nitrogen 36 mg/dL (7-17); Calcium 9.6 mg/dL (8.4-10.2); Carbon Dioxide 29 mmol/L (22-30); Chloride 100 mmol/L (98-107); Estimated Glomerular Filt Rate 48; Glucose 98 mg/dL (65-105); Potassium 5.1 mmol/L (3.4-5.0); Sodium 133 mmol/L (137-145)
== END 2021-03-11 09:26 | disposition home or self-care (01) ==
PROVIDERS: PCP Family Medicine; Visit Provider Internal Medicine Hematology & Oncology
DX: C64.2 Malignant neoplasm of left kidney, except renal pelvis (principal)
CPT/HCPCS: 36415; 80048; 80053; 85025

== ENCOUNTER 2021-07-07 09:06 | Outpatient (CLI) | payer MEDICARE, SELFPAY ==
--- NOTE | ~2021-07-07 | CT_ITS ---
EXAMINATION: CT chest abdomen pelvis wo con EXAM DATE: 07/07/2021 09:29 INDICATION: Renal cell carcinoma of RT kidney. Follow-up post nephrectomy. TECHNIQUE: Spiral CT of the chest, abdomen and pelvis was performed without contrast. Axial, more l and sagittal images chest, abdomen and pelvis were reviewed. Coronal maximum intensity pixel image s of chest reviewed. The dose-length product (DLP) for this examination was 322.85 mGy-cm. The expo sure was tailored according to patient size (auto mA exposure control), and iterative reconstruction (ASIR) was used as additional dose reduction technique. Comparison is made to prior examination from 03/05/[address] FINDINGS: CHEST: There is biapical lung scarring. There is right lower lobe granuloma. No suspicious pulmonary nodules. Trace pericardial effusion. Tracheobronchial tree is patent. There is no mediastinal, h ilar or axillary lymphadenopathy. There is no pneumothorax. Heart normal in size. There is mild coronary arterial calcification, arterial sclerosis. There is a healed right clavicular fracture. ABDOMEN PELVIS: The liver, spleen, left adrenal gland and pancreas are unremarkable. Gallbladder is unremarkable. No biliary obstruction. Unremarkable right-sided nephrectomy bed. No left hydronephro sis or nephrolithiasis. Fibroid uterus. The bladder is unremarkable. There is no retroperitoneal o r pelvic lymphadenopathy. There is mild scattered arteriosclerotic disease. There are no findings to suggest appendicitis. There is mild colonic diverticulosis. There is no adj acent inflammatory change to suggest diverticulitis. The stomach and small bowel are unremarkable. T here is moderate amount of colonic stool. No free intraperitoneal gas. There are no osteoblastic or osteolytic lesions identified. IMPRESSION: 1. No evidence of metastatic disease. 2. Scattered colonic diverticulosis. Reviewed, dictated and finalized at location A.
== END 2021-07-07 09:07 | disposition home or self-care (01) ==
PROVIDERS: PCP Family Medicine; Visit Provider Internal Medicine Hematology & Oncology
DX: C64.1 Malignant neoplasm of right kidney, except renal pelvis (principal); K57.30 Diverticulosis of large intestine without perforation or abscess without bleeding
CPT/HCPCS: 71250; 74176

== ENCOUNTER 2021-07-14 08:53 | Outpatient (CLI) | payer MEDICARE, SELFPAY ==
[2021-07-14 09:11] LABS: Basophils Absolute Auto 0.1 K/mm3 (0.0-0.1); Basophils Percent Auto 0.6 % (0.2-1.2); Eosinophils Absolute Auto 0.2 K/mm3 (0-0.3); Eosinophils Percent Auto 2.7 % (0-4.4); Hematocrit 37.1 % (37.0-47.0); Hemoglobin 12.3 g/dL (12.0-15.0); Immature Granulocyte Absolute 0.03 K/mm3 (0.00-0.031); Immature Granulocyte Percent A 0.3 % (0-0.5); Lymphocytes Percent Auto 20.4 % (18.3-44.2); Mean Corpuscular HGB Conc 33.2 g/dl (32-36); Mean Corpuscular Hemoglobin 30.8 pg (26-34); Mean Corpuscular Volume 92.8 fl (80-100); Mean Platelet Volume 9.5 fl (7.4-10.4); Monocytes Absolute Auto 0.7 K/mm3 (0.1-0.6); Monocytes Percent Auto 7.5 % (2.6-8.5); Neutrophils Absolute Auto 6.1 K/mm3 (1.3-6.7); Neutrophils Percent Auto 68.5 % (45.5-73.1); Platelet Count Result 218 k/mm3 (150-375); Red Cell Distribution Width 12.1 % (11.5-14.5); White Blood Count 8.8 K/mm3 (4.5-10.0)
[2021-07-14 09:16] LABS: Blood Urea Nitrogen 28 mg/dL (8-26); Carbon Dioxide 29 mmol/L (22-30); Chloride 96 mmol/L (98-109); Estimated Glomerular Filt Rate 39; Glucose 93 mg/dL (70-105); Potassium 5.1 mmol/L (3.5-4.9); Sodium 134 mmol/L (138-146)
[2021-07-14 10:28] LABS: Alanine Aminotransferase 26 U/L (4-35); Albumin Level 4.3 g/dL (3.5-5.1); Alkaline Phosphatase 61 U/L (38-126); Anion Gap 9 mmol/L (8-16); Aspartate Amino Transferase 42 U/L (14-36); Bilirubin,Total 0.7 mg/dL (0.2-1.3); Blood Urea Nitrogen 29 mg/dL (7-17); Calcium 9.8 mg/dL (8.4-10.2); Carbon Dioxide 28 mmol/L (22-30); Chloride 97 mmol/L (98-107); Estimated Glomerular Filt Rate 48; Glucose 94 mg/dL (65-110); Potassium 5.2 mmol/L (3.4-5.0); Sodium 134 mmol/L (137-145)
== END 2021-07-14 08:54 | disposition home or self-care (01) ==
LOC: ANHLAB 08:57
PROVIDERS: PCP Family Medicine; Visit Provider Internal Medicine Hematology & Oncology
DX: C64.1 Malignant neoplasm of right kidney, except renal pelvis (principal)
CPT/HCPCS: 36415; 80048; 80053; 85025

== ENCOUNTER 2021-11-17 09:47 | Outpatient (CLI) | payer MEDICARE, SELFPAY ==
--- NOTE | ~2021-11-17 | MM_ITS ---
EXAMINATION: MM screening francine BI w jessie HISTORY: Screening TECHNIQUE: Craniocaudal and mediolateral oblique 3-D tomosynthesis images were obtained and synthetic 2-D images were generated. CAD analysis was submitted and interpreted. COMPARISON: Comparison to multiple prior studies sequentially, with oldest reviewed study dated 04/22. BREAST PARENCHYMAL COMPOSITION: The breasts are heterogenously dense, which may obscure small masses FINDINGS: There is no evidence of suspicious mass, calcification, or architectural distortion to sugg est malignancy in either breast. There has been no suspicious interval change. IMPRESSION: 1. No mammographic evidence of malignancy. 2. Recommend routine screening mammography in one year. BI-RADS Category 1: Negative Reviewed, dictated and finalized at location A. D ESCORT
== END 2021-11-17 09:48 | disposition home or self-care (01) ==
LOC: ANHIMG 09:48
PROVIDERS: PCP Family Medicine; Visit Provider Family Medicine
DX: Z12.31 Encounter for screening mammogram for malignant neoplasm of breast (principal)
CPT/HCPCS: 77063; 77067

== ENCOUNTER 2021-12-29 09:28 | Outpatient (CLI) | payer MEDICARE, SELFPAY ==
--- NOTE | ~2021-12-29 | CT_ITS ---
EXAMINATION: CT abdomen pelvis wo con EXAM DATE: 12/29/2021 09:56 INDICATION: Renal Cell Carcinoma Of Left Kidney TECHNIQUE: Spiral CT of the abdomen and pelvis was performed without contrast. Axial, coronal and s agittal images of the abdomen and pelvis were reviewed. The dose-length product (DLP) for this exami nation was 240.41 mGy-cm. The exposure was tailored according to patient size (auto mA exposure cont rol), and iterative reconstruction (ASIR) was used as additional dose reduction technique. Comparison is made to prior examination from 07/07/2021. FINDINGS: The liver, spleen, left adrenal gland and pancreas are unremarkable. Gallbladder is unre markable. No biliary obstruction. Unremarkable right-sided nephrectomy bed. No left hydronephrosis or nephrolithiasis. Fibroid uterus. Pessary. The bladder is unremarkable. There is no retroperitone al or pelvic lymphadenopathy. There is mild scattered arteriosclerotic disease. There are no findings to suggest appendicitis. There is scattered colonic diverticulosis. There is n o adjacent inflammatory change to suggest diverticulitis. The stomach and small bowel are unremarkabl e. There is moderate amount of colonic stool. No free intraperitoneal gas. Dense mitral annular ca lcifications. Lung bases unremarkable. There are no osteoblastic or osteolytic lesions identified. M oderate to severe mid lumbar disc disease. Mild to moderate lumbar levoscoliosis. IMPRESSION: 1. No evidence of metastatic disease. 2. Scattered colonic diverticulosis. Reviewed, dictated and finalized at location B. 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
== END 2021-12-29 09:29 | disposition home or self-care (01) ==
PROVIDERS: PCP Family Medicine; Visit Provider Internal Medicine Hematology & Oncology
DX: C64.2 Malignant neoplasm of left kidney, except renal pelvis (principal); K57.30 Diverticulosis of large intestine without perforation or abscess without bleeding
CPT/HCPCS: 74176

== ENCOUNTER 2022-01-05 08:35 | Outpatient (CLI) | payer MEDICARE, SELFPAY ==
[2022-01-05 08:49] LABS: Basophils Absolute Auto 0.1 K/mm3 (0.0-0.1); Basophils Percent Auto 0.8 % (0.2-1.2); Eosinophils Absolute Auto 0.3 K/mm3 (0-0.3); Eosinophils Percent Auto 5.1 % (0-4.4); Hematocrit 37.7 % (37.0-47.0); Hemoglobin 11.9 g/dL (12.0-15.0); Immature Granulocyte Absolute 0.01 K/mm3 (0.00-0.031); Immature Granulocyte Percent A 0.2 % (0-0.5); Lymphocytes Absolute Auto 1.61 K/mm3 (0.9-3.2); Lymphocytes Percent Auto 25.5 % (18.3-44.2); Mean Corpuscular HGB Conc 31.6 g/dl (32-36); Mean Corpuscular Hemoglobin 30.6 pg (26-34); Mean Corpuscular Volume 96.9 fl (80-100); Mean Platelet Volume 9.8 fl (7.4-10.4); Monocytes Absolute Auto 0.5 K/mm3 (0.1-0.6); Monocytes Percent Auto 8.5 % (2.6-8.5); Neutrophils Absolute Auto 3.8 K/mm3 (1.3-6.7); Neutrophils Percent Auto 59.9 % (45.5-73.1); Platelet Count Result 209 k/mm3 (150-375); Red Blood Count 3.89 M/mm3 (4.2-5.4); Red Cell Distribution Width 12.2 % (11.5-14.5); White Blood Count 6.3 K/mm3 (4.5-10.0)
[2022-01-05 08:52] LABS: Blood Urea Nitrogen 25 mg/dL (8-26); Carbon Dioxide 29 mmol/L (22-30); Chloride 102 mmol/L (98-109); Estimated Glomerular Filt Rate 47; Glucose 98 mg/dL (70-105); Potassium 5.2 mmol/L (3.5-4.9); Sodium 138 mmol/L (138-146)
[2022-01-05 13:00] LABS: Alanine Aminotransferase 25 U/L (4-35); Albumin Level 4.2 g/dL (3.5-5.1); Alkaline Phosphatase 90 U/L (38-126); Anion Gap 4 mmol/L (8-16); Aspartate Amino Transferase 33 U/L (14-36); Bilirubin,Total 0.6 mg/dL (0.2-1.3); Blood Urea Nitrogen 23 mg/dL (7-17); Calcium 9.3 mg/dL (8.4-10.2); Carbon Dioxide 30 mmol/L (22-30); Chloride 102 mmol/L (98-107); Estimated Glomerular Filt Rate 53; Glucose 98 mg/dL (65-110); Potassium 5.2 mmol/L (3.4-5.0); Sodium 136 mmol/L (137-145)
== END 2022-01-05 08:36 | disposition home or self-care (01) ==
LOC: ANHLAB 08:36
PROVIDERS: PCP Family Medicine; Visit Provider Internal Medicine Hematology & Oncology
DX: C64.2 Malignant neoplasm of left kidney, except renal pelvis (principal)
CPT/HCPCS: 36415; 80053; 85025

== ENCOUNTER 2022-07-09 10:05 | Outpatient (CLI) | payer MEDICARE, SELFPAY ==
--- NOTE | ~2022-07-09 | CT_ITS ---
EXAMINATION: CT abdomen pelvis w con INDICATION: Renal cell carcinoma TECHNIQUE: Computed tomographic images of the abdomen and pelvis were obtained after the administrati on of 100 cc of Omnipaque 350 intravenous contrast. The dose-length product (DLP) was 238.08 mGy-cm. Automated exposure control and iterative reconstruction technique were employed. COMPARISON: 12/29/2021 FINDINGS: Minimal dependent atelectasis is present in the lung bases. The heart size is normal. There is a small sliding hiatal hernia. The liver, spleen, pancreas, gallbladder, and left adrenal gland a re normal. There are changes of right nephrectomy and adrenalectomy. Cysts of the left kidney measure up to 6 mm. No pathologically enlarged abdominal or pelvic lymph nodes are identified. There is no f ree intraperitoneal gas or evidence of bowel obstruction. Calcified uterine fibroids are noted. There is severe lumbar spondylosis. A large volume of colonic stool is present. IMPRESSION: 1. Changes of right nephrectomy and right adrenalectomy without evidence of recurrent or metastatic d isease Reviewed, dictated and finalized at location B. IMPRESSION: 1. Changes of right nephrectomy and right adrenalectomy without evidence of rec urrent or metastatic disease
[2022-07-09 11:20] LABS: Estimated Glomerular Filt Rate 53
== END 2022-07-09 10:06 | disposition home or self-care (01) ==
PROVIDERS: PCP Family Medicine; Visit Provider Internal Medicine Hematology & Oncology
DX: C64.2 Malignant neoplasm of left kidney, except renal pelvis (principal)
CPT/HCPCS: 74177; Q9967

== ENCOUNTER 2022-07-15 09:40 | Outpatient (CLI) | payer MEDICARE, SELFPAY ==
[2022-07-15 09:54] LABS: Basophils Absolute Auto 0.1 K/mm3 (0.0-0.1); Basophils Percent Auto 0.8 % (0.2-1.2); Eosinophils Absolute Auto 0.2 K/mm3 (0-0.3); Eosinophils Percent Auto 2.9 % (0-4.4); Hematocrit 37.8 % (37.0-47.0); Hemoglobin 12.2 g/dL (12.0-15.0); Immature Granulocyte Absolute 0.03 K/mm3 (0.00-0.031); Immature Granulocyte Percent A 0.4 % (0-0.5); Lymphocytes Absolute Auto 1.66 K/mm3 (0.9-3.2); Lymphocytes Percent Auto 22.8 % (18.3-44.2); Mean Corpuscular HGB Conc 32.3 g/dl (32-36); Mean Corpuscular Hemoglobin 30.6 pg (26-34); Mean Corpuscular Volume 94.7 fl (80-100); Mean Platelet Volume 9.7 fl (7.4-10.4); Monocytes Absolute Auto 0.6 K/mm3 (0.1-0.6); Monocytes Percent Auto 7.8 % (2.6-8.5); Neutrophils Absolute Auto 4.8 K/mm3 (1.3-6.7); Neutrophils Percent Auto 65.3 % (45.5-73.1); Platelet Count Result 227 k/mm3 (150-375); Red Blood Count 3.99 M/mm3 (4.2-5.4); Red Cell Distribution Width 12.5 % (11.5-14.5); White Blood Count 7.3 K/mm3 (4.5-10.0)
[2022-07-15 09:58] LABS: Blood Urea Nitrogen 18 mg/dL (8-26); Carbon Dioxide 26 mmol/L (22-30); Chloride 98 mmol/L (98-109); Estimated Glomerular Filt Rate 53; Glucose 102 mg/dL (70-105); Ionized Calcium (POC) 1.29 mmol/L (1.11-1.31); Potassium 4.7 mmol/L (3.5-4.9); Sodium 134 mmol/L (138-146)
[2022-07-15 10:42] LABS: Alanine Aminotransferase 34 U/L (6-35); Albumin Level 4.3 g/dL (3.5-5.1); Alkaline Phosphatase 67 U/L (38-126); Anion Gap 9 mmol/L (8-16); Aspartate Amino Transferase 36 U/L (14-36); Bilirubin,Total 0.7 mg/dL (0.2-1.3); Blood Urea Nitrogen 19 mg/dL (7-17); Calcium 9.7 mg/dL (8.4-10.2); Carbon Dioxide 26 mmol/L (22-30); Chloride 97 mmol/L (98-107); Estimated Glomerular Filt Rate 53; Glucose 105 mg/dL (65-110); Potassium 4.7 mmol/L (3.4-5.0); Sodium 132 mmol/L (137-145)
== END 2022-07-15 09:41 | disposition home or self-care (01) ==
LOC: ANHLAB 09:41
PROVIDERS: PCP Family Medicine; Visit Provider Internal Medicine Hematology & Oncology
DX: C64.2 Malignant neoplasm of left kidney, except renal pelvis (principal)
CPT/HCPCS: 36415; 80047; 80053; 85025

== ENCOUNTER 2023-01-17 09:04 | Outpatient (CLI) | payer MEDICARE, SELFPAY ==
--- NOTE | ~2023-01-17 | CT_ITS ---
EXAMINATION: CT abdomen pelvis w con DATE: 01/17/2023 09:50 INDICATION: Renal cell carcinoma; restaging TECHNIQUE: Computed tomography (CT) of the abdomen and pelvis was performed with 100 CC Omnipaque 350 intravenous contrast. Automated exposure control and iterative reconstruction technique were employe d. Exam dose: 227.78 mGy-cm total exam DLP. COMPARISON: 07/09/2022 CT abdomen pelvis FINDINGS: The lung bases are clear. Small sliding hiatal hernia. Hepatic steatosis. A couple of very small lower right hepatic probable cysts are noted in addition to approximately 5 mm cyst of the lateral segment of the left hepatic lobe. The gallbladder is present. No bile duct dilatation or pancreatic duct dilatation. No pancreatic mass lesion or calcification is detected. Normal splenic size. Small splenule. Status post right adrenalectomy and right nephrectomy. No suspicious mass is noted in the right nephr ectomy bed. Normal left adrenal gland. Small left renal cysts. No suspicious left renal mass lesion. No left urin luciana tract calculus or hydroureteronephrosis. The urinary bladder is unremarkable. Retroverted uterus with prominent calcified uterine fibroids. Pessary device is noted. There is atherosclerotic calcification but normal caliber of the abdominal aorta. No intraperitoneal or retroperitoneal or pelvic mass lesion or adenopathy or ascites. The appendix is not readily identified but no evidence of appendicitis or bowel obstruction, bowel wa ll thickening, pneumatosis or intraperitoneal free air is detected. There is diverticulosis of the co kedar; no CT evidence of diverticulitis. Prominent amount fecal material in the colon. Degenerative changes of the thoracic and lumbar spine including severe degenerative disc disease at L 1-2, L3-4, L4-5, moderate degenerative disc disease with retrolisthesis at L2-3. Mildly severe degene rative disc disease at L5-S1. No suspicious osteolytic or osteoblastic lesions are noted. IMPRESSION: Status post right nephrectomy for renal carcinoma; no recurrence or metastasis is noted Small sliding hiatal hernia Retroverted uterus with fibroids Reviewed, dictated and finalized at Location A. Reviewed, dictated and finalized at location B. IMPRESSION: Status post right nephrectomy for renal carcinoma; no recurrence o r metastasis is noted Small sliding hiatal hernia Retroverted uterus with fibroids
[2023-01-17 09:38] LABS: Estimated Glomerular Filt Rate 47
== END 2023-01-17 09:05 | disposition home or self-care (01) ==
PROVIDERS: PCP Family Medicine; Visit Provider Internal Medicine Hematology & Oncology
DX: C64.1 Malignant neoplasm of right kidney, except renal pelvis (principal); K44.9 Diaphragmatic hernia without obstruction or gangrene; D25.9 Leiomyoma of uterus, unspecified
CPT/HCPCS: 74177; Q9967

== ENCOUNTER 2023-02-08 09:27 | Outpatient (CLI) | payer MEDICARE, SELFPAY ==
[2023-02-08 09:41] LABS: Basophils Absolute Auto 0.1 K/mm3 (0.0-0.1); Basophils Percent Auto 0.5 % (0.2-1.2); Eosinophils Absolute Auto 0.3 K/mm3 (0-0.3); Eosinophils Percent Auto 2.9 % (0-4.4); Hemoglobin 12.2 g/dL (12.0-15.0); Immature Granulocyte Absolute 0.04 K/mm3 (0.00-0.031); Immature Granulocyte Percent A 0.4 % (0-0.5); Lymphocytes Absolute Auto 1.81 K/mm3 (0.9-3.2); Lymphocytes Percent Auto 19.9 % (18.3-44.2); Mean Corpuscular Hemoglobin 30.7 pg (26-34); Monocytes Absolute Auto 0.7 K/mm3 (0.1-0.6); Monocytes Percent Auto 7.7 % (2.6-8.5); Neutrophils Absolute Auto 6.2 K/mm3 (1.3-6.7); Neutrophils Percent Auto 68.6 % (45.5-73.1); Platelet Count Result 215 k/mm3 (150-375); Red Blood Count 3.98 M/mm3 (4.2-5.4); Red Cell Distribution Width 11.9 % (11.5-14.5); White Blood Count 9.1 K/mm3 (4.5-10.0)
[2023-02-08 09:49] LABS: Blood Urea Nitrogen 26 mg/dL (8-26); Carbon Dioxide 28 mmol/L (22-30); Chloride 99 mmol/L (98-109); Estimated Glomerular Filt Rate 43; Glucose 94 mg/dL (70-105); Ionized Calcium (POC) 1.24 mmol/L (1.11-1.31); Potassium 4.7 mmol/L (3.5-4.9); Sodium 135 mmol/L (138-146)
[2023-02-08 10:27] LABS: Alanine Aminotransferase 34 U/L (6-35); Albumin Level 4.3 g/dL (3.5-5.1); Alkaline Phosphatase 74 U/L (38-126); Anion Gap 5 mmol/L (8-16); Aspartate Amino Transferase 38 U/L (14-36); Bilirubin,Total 0.8 mg/dL (0.2-1.3); Blood Urea Nitrogen 26 mg/dL (7-17); Calcium 9.4 mg/dL (8.4-10.2); Carbon Dioxide 29 mmol/L (22-30); Chloride 99 mmol/L (98-107); Estimated Glomerular Filt Rate 53; Glucose 96 mg/dL (65-110); Potassium 4.9 mmol/L (3.4-5.0); Sodium 133 mmol/L (137-145)
== END 2023-02-08 09:28 | disposition home or self-care (01) ==
LOC: ANHLAB 09:29
PROVIDERS: PCP Family Medicine; Visit Provider Internal Medicine Hematology & Oncology
DX: C64.1 Malignant neoplasm of right kidney, except renal pelvis (principal)
CPT/HCPCS: 36415; 80047; 80053; 85025

== ENCOUNTER 2023-02-23 07:39 | Outpatient (CLI) | payer MEDICARE, SELFPAY ==
--- NOTE | ~2023-02-23 | DEXA_ITS ---
Bone Density Report Name: YUNG PATEL Age: 82 Sex: Female Ethnicity: White Date of : 1940 Indication: osteopenia; monitoring treatment; height loss; cancer; postmenopausal Referring Provider: ZULEMA OVERTON Study: Bone densitometry was performed. Exam Date: February 23, 2023 Accession number: [id number] Bone Density: Region BMD T-score Z-score Classification AP Spine(L1, L2) 1.122 1.3 4.0 Normal Femoral Neck (Left) 0.666 -1.6 0.8 Osteopenia Total Hip (Left) 0.789 -1.3 1.0 Osteopenia Femoral Neck (Right) 0.661 -1.7 0.8 Osteopenia Total Hip (Right) 0.743 -1.6 0.7 Osteopenia Total Hip Mean 0.766 -1.5 0.9 Osteopenia World Health Organization criteria for BMD impression classify patients as: Normal (T-score at or above -1.0), Osteopenia (T-score between -1.0 and -2.5), or Osteoporosis (T-score at or below -2.5). 10-year Fracture Risk: FRAX not reported because: Treated for osteoporosis Previous Exams: Region Exam Age BMD T-score BMD Change BMD Change Date g/cm2 vs Baseline vs Previous AP Spine (L1-L2) 02/23/2023 82 1.122 1.3 0.093 (9.1%)* 0.093 (9.1%)* 09/05/2019 78 1.028 0.4 Total Hip(Left) 02/23/2023 82 0.789 -1.3 0.014 (1.8%) 0.014 (1.8%) 09/05/2019 78 0.775 -1.4 Total Hip(Right) 02/23/2023 82 0.743 -1.6 0.020 (2.8%) 0.020 (2.8%) 09/05/2019 78 0.723 -1.8 *Denotes significance at 95% confidence level, LSC for AP Spine = 0.022 g/cm2, LSC for Total Hip = 0.027 g/cm2 Clinical Information Provided by Patient: Is being treated for osteoporosis Has used the following medications: Fosamax (i.e. alendronate), Vitamin D, Calcium Has the following medical conditions: Cancer Patient maximum height was 65.5 Menopause Age: 48 Drinks caffeinated beverages Onset of menses at age 10 Number of children 2 Impression: The patient has low bone mass, based on the Right Femoral Neck T-score. No significant bone loss was observed. Discussion: PATIENT UNDER TREATMENT WITH NO SIGNIFICANT BMD LOSS SINCE LAST EXAM. In an untreated patient, BMD typically declines with age. A lack of decline or gain is usually a sign that treatment is efficacious and fracture risk is reduced. It is important to ask patients whether they are taking their medications and to encourage continued and appropriate compliance with their osteoporosis therapies to reduce fracture risk. It is also important to review their risk factors and e
== END 2023-02-23 07:40 | disposition home or self-care (01) ==
LOC: ANHIMG 07:41
PROVIDERS: PCP Family Medicine; Visit Provider Nurse Practitioner Family
DX: M85.9 Disorder of bone density and structure, unspecified (principal); Z78.0 Asymptomatic menopausal state
CPT/HCPCS: 77080

== ENCOUNTER 2023-03-17 07:18 | Outpatient (CLI) | payer MEDICARE, SELFPAY ==
--- NOTE | ~2023-03-17 | MM_ITS ---
EXAMINATION: MM screening francine BI w jessie HISTORY: Screening mammogram TECHNIQUE: Craniocaudal and mediolateral oblique 3-D tomosynthesis images were obtained and synthetic 2-D images were generated. CAD analysis was submitted and interpreted. COMPARISON: 11/17/2021, 09/24/2020, 09/05/2019 BREAST PARENCHYMAL COMPOSITION: The breasts are heterogeneously dense, which may obscure small masses . FINDINGS: No suspicious mass, calcification, or architectural distortion are identified in either rebeca ast to suggest malignancy. There has been no suspicious interval change. IMPRESSION: 1. No mammographic evidence of malignancy. 2. Recommend routine screening mammography while the patient remains in good health. BI-RADS Category 1: Negative Reviewed, dictated and finalized at location A. IMPRESSION: 1. No mammographic evidence of malignancy. 2. Recommend routine screening mammography while the patient remains in good he alth. BI-RADS Category 1: Negative
== END 2023-03-17 07:19 | disposition home or self-care (01) ==
LOC: ANHIMG 07:20
PROVIDERS: PCP Family Medicine; Visit Provider Nurse Practitioner Family
DX: Z12.31 Encounter for screening mammogram for malignant neoplasm of breast (principal)
CPT/HCPCS: 77063; 77067

== ENCOUNTER 2023-08-08 08:22 | Outpatient (CLI) | payer MEDICARE, SELFPAY ==
--- NOTE | ~2023-08-08 | CT_ITS ---
EXAMINATION: CT abdomen pelvis w con DATE: 08/08/2023 09:05 INDICATION: Renal cell carcinoma of the right kidney. TECHNIQUE: Computed tomography (CT) of the abdomen and pelvis was performed with 100 mL Omnipaque-350 intravenous contrast. Automated exposure control and iterative reconstruction technique were employe d. The dose-length product was 293.82 mGy-cm. COMPARISON: 01/27/2023 FINDINGS: Calcified right lower lobe nodules consistent with old granulomatous disease. Heart size is normal. A therosclerotic coronary artery calcific lesion. There is also aortic valve and mitral annular calcifi c lesion. No pericardial effusion. Small sliding-type hiatal hernia. Liver, decompressed gallbladder, spleen, pancreas, left adrenal gland are normal. There are three subcentimeter cysts in the left kid giselle. Again seen are surgical clips at the bed of a prior left nephrectomy and adrenalectomy reportedl y for right renal cell carcinoma with no abnormal soft tissue to suggest residual or locally recurren t disease. Large amount of stool throughout the colon which could be seen with constipation. There ar e few scattered colonic diverticula without adjacent inflammatory change to suggest diverticular coli tis. Small bowel and appendix are normal. Bladder is normal. Calcified degenerated fibroids in the re troverted uterus. Bilateral adnexa are unremarkable. No free intraperitoneal gas or fluid. No patholo gically enlarged abdominal or pelvic lymphadenopathy. Mild S-shaped thoracolumbar scoliosis with lumb ar levocurvature and compensatory dextrocurvature at the proximal lumbar junction. Severe lumbar and moderate lower thoracic spondylosis. IMPRESSION: 1. Status post right nephrectomy and adrenalectomy reportedly for right renal cell carcinoma with no evident residual, locally recurrent or metastatic disease. 2. Small sliding-type hiatal hernia. 3. Retroverted fibroid uterus. Reviewed, dictated and finalized at location A. IMPRESSION: 1. Status post right nephrectomy and adrenalectomy reportedly for right renal c ell carcinoma with no evident residual, locally recurrent or metastatic disease . 2. Small sliding-type hiatal hernia. 3. Retroverted fibroid uterus.
[2023-08-08 08:54] LABS: Estimated Glomerular Filt Rate 47
== END 2023-08-08 08:23 | disposition home or self-care (01) ==
PROVIDERS: PCP Family Medicine; Visit Provider Internal Medicine Hematology & Oncology
DX: C64.1 Malignant neoplasm of right kidney, except renal pelvis (principal); K44.9 Diaphragmatic hernia without obstruction or gangrene; D25.9 Leiomyoma of uterus, unspecified
CPT/HCPCS: 74177; Q9967

== ENCOUNTER 2023-08-15 09:23 | Outpatient (CLI) | payer MEDICARE, SELFPAY ==
[2023-08-15 10:11] LABS: Basophils Absolute Auto 0.1 K/mm3 (0.0-0.1); Eosinophils Absolute Auto 0.2 K/mm3 (0-0.3); Eosinophils Percent Auto 3.4 % (0-4.4); Hematocrit 37.8 % (37.0-47.0); Hemoglobin 12.4 g/dL (12.0-15.0); Immature Granulocyte Absolute 0.03 K/mm3 (0.00-0.031); Immature Granulocyte Percent A 0.4 % (0-0.5); Lymphocytes Absolute Auto 1.57 K/mm3 (0.9-3.2); Lymphocytes Percent Auto 22.9 % (18.3-44.2); Mean Corpuscular HGB Conc 32.8 g/dl (32-36); Mean Corpuscular Hemoglobin 31.2 pg (26-34); Monocytes Absolute Auto 0.6 K/mm3 (0.1-0.6); Monocytes Percent Auto 8.3 % (2.6-8.5); Neutrophils Absolute Auto 4.4 K/mm3 (1.3-6.7); Platelet Count Result 191 k/mm3 (150-375); Red Blood Count 3.98 M/mm3 (4.2-5.4); Red Cell Distribution Width 12.2 % (11.5-14.5); White Blood Count 6.9 K/mm3 (4.5-10.0)
[2023-08-15 12:12] LABS: Alanine Aminotransferase 29 U/L (6-35); Albumin Level 4.3 g/dL (3.5-5.1); Alkaline Phosphatase 66 U/L (38-126); Anion Gap 6 mmol/L (8-16); Aspartate Amino Transferase 45 U/L (14-36); Bilirubin,Total 0.7 mg/dL (0.2-1.3); Blood Urea Nitrogen 21 mg/dL (7-17); Calcium 9.4 mg/dL (8.4-10.2); Carbon Dioxide 29 mmol/L (22-30); Chloride 100 mmol/L (98-107); Estimated Glomerular Filt Rate 53; Glucose 99 mg/dL (65-110); Potassium 4.6 mmol/L (3.4-5.0); Sodium 135 mmol/L (137-145)
== END 2023-08-15 09:24 | disposition home or self-care (01) ==
LOC: ANHLAB 09:26
PROVIDERS: PCP Family Medicine; Visit Provider Internal Medicine Hematology & Oncology
DX: C64.1 Malignant neoplasm of right kidney, except renal pelvis (principal)
CPT/HCPCS: 36415; 80053; 85025

== ENCOUNTER 2023-10-17 12:34 | Outpatient (CLI) | payer MEDICARE, SELFPAY ==
--- NOTE | ~2023-10-17 | US_ITS ---
EXAMINATION: US carotid duplex BI DATE: 10/17/2023 13:23 INDICATION: Carotid stenosis TECHNIQUE: Grayscale, color Doppler, and pulsed Doppler images of the cervical carotid arteries were obtained. The degree of vessel stenosis is placed in one of the following categories: normal, <50%, 5 0-69%, >=70% but less than near-occlusion, near-occlusion, or total occlusion. Note that percent sten osis relative to normal distal artery lumen diameter is indirectly measured from velocity measurement s as described by Teodoro, et al. Radiology 2003; 229:340-346. Notes: Normal: Peak systolic velocity <125 centimeters/sec and no plaque <50%. Peak systolic velocity <125 ( EDV <40; ICA/CCA PSV ratio <2.0; used these factors only a tandem lesions or low cardiac output or co ntralateral disease) 50-69 %: PSV 125-230 (EDV 40-100; ratio 2-4) >= 70% but less than near occlusion: PSV greater than 230 (EDV > 100; ratio> 4.0) Near Occlusion: PSV that is variable; markedly narrowed lumen Occlusion: Absent flow on color/spectral Doppler and no lumen on palomo scale. COMPARISON: None. FINDINGS: RIGHT: The right common carotid artery (CCA) peak systolic velocity (PSV) is 79 cm/s. The right internal car otid artery (ICA) PSV is 76 cm/s. The right ICA end-diastolic velocity (EDV) is 26 cm/s. The right IC A/CCA PSV ratio is 1.0. The external carotid artery (ECA) PSV is 65 cm/s. There is antegrade flow in the right vertebral artery. LEFT: The left CCA PSV is 82 cm/s. The left ICA PSV is 70 cm/s. The left ICA EDV is 74 cm/s. The left ICA/C CA PSV ratio is 0.9. The ECA PSV is 74 cm/s. There is antegrade flow in the left vertebral artery. IMPRESSION: 1. Less than 50% stenosis in the right internal carotid artery by sonographic criteria. 2. Less than 50% stenosis in the left internal carotid artery by sonographic criteria. Reviewed, dictated and finalized at location A. TILE PRESS OPERATOR IMPRESSION: 1. Less than 50% stenosis in the right internal carotid artery by sonographic марина escobar. 2. Less than 50% stenosis in the left internal carotid artery by sonographic michael ham.
== END 2023-10-17 12:35 | disposition home or self-care (01) ==
PROVIDERS: PCP Family Medicine; Visit Provider Nurse Practitioner Family
DX: I65.21 Occlusion and stenosis of right carotid artery (principal); R55 Syncope and collapse
CPT/HCPCS: 93880

== ENCOUNTER 2023-11-03 08:36 | Outpatient (CLI) | payer MEDICARE, SELFPAY ==
--- NOTE | 2023-11-03 09:00 | ECHO_ITS ---
Patient Info Name: Patti Sullivan Age: 83 years : 1940 Gender: Female Ht: 63 in Wt: 128 lbs BSA: 1.61 m2 HR: 52 bpm BP: 128 / 64 mmHg Technical Quality: Good Exam Date: 11/03/2023 9:09 AM Exam Location: Echo Lab Patient Status: Outpatient Admit Date: 11/03/2023 Staff Ordering Physician: Yojana hSah Attending Provider: Yojana Shah Referring Physician: Alyssa QUINTEROS; Exam Type: CA echo doppler color flow Study Info Indications I10 - Essential (primary) hypertension Complete two-dimensional, color flow and Doppler transthoracic echocardiogram is performed. Summary 1. Complete two-dimensional, color flow and Doppler transthoracic echocardiogram is performed. 2. Left ventricular chamber dimension is normal. 3. Left ventricular systolic function is normal, estimated at 60-65%. 4. The left ventricular diastolic function is abnormal. 5. E/e' 18 is elevated. 6. Left atrial chamber dimension is moderately enlarged. 7. Right atrial chamber dimension is mildly enlarged. 8. There is moderate aortic valve sclerosis. 9. There is mild aortic valve stenosis with a peak velocity of 196 cm/s, mean gradient of 9 mmHg, and aortic valve area of 1.7 cm2. 10. There is mild aortic valve regurgitation. 11. The mitral valve has mildly calcified leaflets and severely calcified annulus. 12. There is moderate anteriorly directed mitral valve regurgitation. 13. Moderate posterior mitral valve prolapse. 14. There is moderate tricuspid valve regurgitation. 15. No pulmonary hypertension, estimated pulmonary arterial systolic pressure is 32 mmHg. 16. There is moderate pulmonic regurgitation. Left Ventricle E/e' 18 is elevated. Left ventricular chamber dimension is normal. Left ventricular systolic function is normal, estimated at 60-65%. The left ventricular diastolic function is abnormal. Right Ventricle Right ventricular systolic function is normal and with normal TAPSE 2.4 cm. Right ventricular chamber dimension is normal. Left Atria Left atrial chamber dimension is moderately enlarged. Right Atria Right atrial chamber dimension is mildly enlarged. Aortic Valve The aortic valve is trileaflet. There is moderate aortic valve sclerosis. There is mild aortic valve stenosis with a peak velocity of 196 cm/s, mean gradient of 9 mmHg, and aortic valve area of 1.7 cm2. There is mild aortic valve regurgitation. Pulmonic Valve There is moderate pulmonic regurgitation. Mitral Valve The mitral valve has mildly calcified leaflets and severely calcified annulus. There is moderate anteriorly directed mitral valve regurgitation. Moderate posterior mitral valve prolapse. There is no mitral valve stenosis. Tricuspid Valve There is moderate tricuspid valve regurgitation. No pulmonary hypertension, estimated pulmonary arterial systolic pressure is 32 mmHg. Pericardium/Pleural There is no pericardial effusion. Inferior Vena Cava Normal inferior vena cava with >50% collapse upon inspiration consistent with normal right atrial pressure, 5 mmHg. Aorta The aortic root size at the sinus of Valsalva is normal. Left Ventricular Outflow Tract Name Value Normal LVOT 2D LVOT Diameter 2.0 cm LVOT Doppler LV
--- NOTE | 2023-11-06 08:30 | WPDHOLTEREM ---
Holter/Event Monitor Holter/Event Monitor Date of procedure: 11/03/23 Holter/Event Procedure: 24 Hr Holter Monitor Indications: Syncope Conclusion: 1. 24 hour holter monitor on 11/03/23. 2. Underlying rhythm is sinus rhythm. HR range 47-81 bpm; average HR 58 bpm. HR at 47 bpm was at 00:40. 3. There are 48 premature supraventricular complexes and 1 supraventricular couplet. No supraventricular tachycardia. 4. No premature ventricular complexes. No ventricular tachycardia. 5. No sinoatrial or atrioventricular blocks. No significant pauses greater than 2 seconds. 6. No symptoms available for correlation.
== END 2023-11-03 08:37 | disposition home or self-care (01) ==
PROVIDERS: PCP Family Medicine; Visit Provider Nurse Practitioner Family
DX: R93.1 Abnormal findings on diagnostic imaging of heart and coronary circulation (principal); I10 Essential (primary) hypertension; I35.8 Other nonrheumatic aortic valve disorders; I35.0 Nonrheumatic aortic (valve) stenosis; I35.1 Nonrheumatic aortic (valve) insufficiency; I34.81 Nonrheumatic mitral (valve) annulus calcification; I34.0 Nonrheumatic mitral (valve) insufficiency; I34.1 Nonrheumatic mitral (valve) prolapse; I07.1 Rheumatic tricuspid insufficiency; I37.1 Nonrheumatic pulmonary valve insufficiency
CPT/HCPCS: 93225; 93226; 93306

== ENCOUNTER 2024-05-18 12:37 | Outpatient (CLI) | payer MEDICARE, SELFPAY ==
--- NOTE | ~2024-05-18 | MMUS_ITS ---
EXAMINATION: MM diagnostic francine BI w jessie, US breast BI complete HISTORY: Pulling sensation of the breasts. Clear nipple discharge. TECHNIQUE: Additional 3-D tomosynthesis images of the breasts were performed and synthetic 2-D images were generated. CAD analysis was submitted and interpreted. High resolution complete bilateral breas t ultrasound was performed. COMPARISON: Comparison to multiple prior studies sequentially, with oldest reviewed study dated 04/24. BREAST PARENCHYMAL COMPOSITION: Dense: The breasts are heterogeneously dense, which may obscure small masses FINDINGS: MAMMOGRAPHIC FINDINGS: The breasts are stable. No new masses, calcifications or architectural distortion in either breast to suggest malignancy. ULTRASOUND: Complete bilateral US of all 4 quadrants of the breasts and retroareolar region was reviewed. Normal heterogeneous echotexture without focal solid or cystic mass. IMPRESSION: 1. No evidence for malignancy in either breast. 2. Routine yearly screening mammogram and regular clinical breast examination are recommended. BI-RADS Category 1: Negative Reviewed, dictated and finalized at location B. IMPRESSION: 1. No evidence for malignancy in either breast. 2. Routine yearly screening mammogram and regular clinical breast examination a re recommended. BI-RADS Category 1: Negative
== END 2024-05-18 12:38 | disposition home or self-care (01) ==
PROVIDERS: PCP Family Medicine; Visit Provider Nurse Practitioner Family
DX: N63.0 Unspecified lump in unspecified breast (principal); N64.4 Mastodynia
CPT/HCPCS: 76641; 77062; 77066; G0279

== ENCOUNTER 2024-08-06 08:29 | Outpatient (CLI) | payer MEDICARE, SELFPAY ==
--- NOTE | ~2024-08-06 | CT_ITS ---
CT of the Abdomen and Pelvis: Indication: Renal cell carcinoma Technique: 2.5 mm axial scans were obtained through the abdomen and pelvis following intravenous adm inistration of 100 cc of Omnipaque 350. Dose reduction technique was used on this scan by utilizing a utomated exposure control and iterative reconstruction technique. The dose-length product (DLP) was 3 12.10 mGy-cm. COMPARISON: 08/08/2023 Findings: Scans through the lung bases demonstrate calcified right basilar granulomas. The liver, spleen, pancreas, gallbladder, left adrenal gland, and left kidney are within normal limit s. Status post right nephrectomy. There are atherosclerotic calcifications of the aorta. No lymphade nopathy. No bowel obstruction or bowel wall thickening. There is no evidence to suggest acute appendicitis. Images through the pelvis were performed. Urinary bladder unremarkable. Calcified uterine fibroids ar e present. Impression: No evidence for recurrent malignancy or metastatic disease. Status post right nephrectomy. Calcified uterine fibroids. Reviewed, dictated and finalized at location . Impression: No evidence for recurrent malignancy or metastatic disease. Status post right nephrectomy. Calcified uterine fibroids.
[2024-08-06 08:57] LABS: Estimated Glomerular Filt Rate 43
== END 2024-08-06 08:30 | disposition home or self-care (01) ==
PROVIDERS: PCP Family Medicine; Visit Provider Internal Medicine Hematology & Oncology
DX: C64.1 Malignant neoplasm of right kidney, except renal pelvis (principal); D25.9 Leiomyoma of uterus, unspecified
CPT/HCPCS: 74177; Q9967

== ENCOUNTER 2024-08-15 09:23 | Emergency (ER) | payer MEDICARE, SELFPAY ==
[2024-08-15] VITALS (12 sets, daily range): BP systolic 100–153; BP diastolic 55–88; PULSE 59–67; RESP 12–18; TEMP 36.4–36.7; O2SAT 96–100
--- NOTE | ~2024-08-15 | CT_ITS ---
Non-contrast Head CT History: Mental status change Technique: Axial non-contrast imaging of the brain was performed. Dose reduction technique was used on this scan by utilizing automated exposure control and iterative reconstruction technique. The dose -length product (DLP) was 1210.67 mGy-cm. Findings: There is a 3.4 x 3.0 x 4.2 cm parenchymal hematoma in the left frontal lobe with surroundin g vasogenic edema. There are probable minimal adjacent subarachnoid hemorrhage in the left frontal lo be as well. There is mild compression of the frontal horn left lateral ventricle, with local rightwar d midline shift of 3-4 millimeters. The ventricles and subarachnoid spaces are otherwise normal in si ze. The calvarium appears normal. The visualized paranasal sinuses and mastoid air cells are clear. Impression: 3.4 x 3.0 x 4.2 cm acute parenchymal hematoma left frontal lobe with surrounding vasogenic edema and mild mass effect, as detailed above. Underlying mass cannot be completely excluded. Small amount of adjacent subarachnoid hemorrhage in the left frontal lobe. Case discussed with Dr. Cheng at the time of this reading. Reviewed, dictated and finalized at location . Impression: 3.4 x 3.0 x 4.2 cm acute parenchymal hematoma left frontal lobe with surroundin g vasogenic edema and mild mass effect, as detailed above. Underlying mass vani ot be completely excluded. Small amount of adjacent subarachnoid hemorrhage in the left frontal lobe. Case discussed with Dr. Cheng at the time of this reading.
--- NOTE | ~2024-08-15 | XR_ITS ---
EXAMINATION: XR chest 1V portable DATE: 08/15/2024 10:20 INDICATION: Altered mental status TECHNIQUE: frontal view of the chest was obtained. COMPARISON: Chest CT dated 07/07/2021 FINDINGS: Mild biapical pleural-parenchymal scarring. Couple calcified nodules in the right mid and lower lung zone consistent with old granulomatous disease. Mild elevation the left hemidiaphragm. Minimal streak y atelectasis/scarring at the bilateral lung bases. No pulmonary edema, pleural effusion or pneumotho rax. Heart size is normal. Mitral annular calcification. Surgical clips to the right of the upper lum bar spine corresponding to change of prior right nephrectomy. New right upper quadrant surgical clips likely related to interval cholecystectomy. Moderate degenerative skeletal changes in the spine and bilateral shoulders. Old healed right clavicle fracture deformity. IMPRESSION: 1. Biapical pleural-parenchymal scarring and minimal streaky bibasilar atelectasis. Reviewed, dictated and finalized at location A. IMPRESSION: 1. Biapical pleural-parenchymal scarring and minimal streaky bibasilar atelecta sis.
--- NOTE | 2024-08-15 09:32 | ECG_ITS ---
Test Date: 2024-08-15 09:46:18 Measurements Intervals [place] Rate: 59 P: 62 FL: 177 QRS: 32 QRSD: 92 T: 48 QT: 388 QTc: 387 Interpretive Statements SINUS BRADYCARDIA POSSIBLE RIGHT VENTRICULAR CONDUCTION DELAY [RSR (QR) IN V1/V2] No previous ECG available for comparison Electronically Signed On 08-15-2024 09:52:54 CDT by Diamond Yadav M.D.
[2024-08-15 09:47] LABS: Glucose Point of Care 122 mg/dl (65-105)
[2024-08-15 10:00] LABS: Basophils Absolute Auto 0.1 K/mm3 (0.0-0.1); Basophils Percent Auto 0.7 % (0.2-1.2); Eosinophils Absolute Auto 0.1 K/mm3 (0-0.3); Eosinophils Percent Auto 1.1 % (0-4.4); Hematocrit 36.9 % (37.0-47.0); Hemoglobin 12.4 g/dL (12.0-15.0); Immature Granulocyte Absolute 0.02 K/mm3 (0.00-0.031); Immature Granulocyte Percent A 0.2 % (0-0.5); Lymphocytes Absolute Auto 2.11 K/mm3 (0.9-3.2); Lymphocytes Percent Auto 20.9 % (18.3-44.2); Mean Corpuscular HGB Conc 33.6 g/dl (32-36); Mean Corpuscular Hemoglobin 31.8 pg (26-34); Mean Corpuscular Volume 94.6 fl (80-100); Mean Platelet Volume 10.2 fl (7.4-10.4); Monocytes Percent Auto 10.3 % (2.6-8.5); Neutrophils Absolute Auto 6.7 K/mm3 (1.3-6.7); Neutrophils Percent Auto 66.8 % (45.5-73.1); Platelet Count Result 241 k/mm3 (150-375); Red Cell Distribution Width 12.5 % (11.5-14.5); White Blood Count 10.1 K/mm3 (4.5-10.0)
[2024-08-15 10:04] LABS: Add Urine Microscopic? YES; Appearance Urine Clear (Clear); Bacteria Urine None Seen /hpf; Bilirubin Urine Negative (Negative); Blood Urine 2+ (Negative); Color Urine Yellow (Yellow); Glucose Urine UA Negative (Negative); Ketones Urine 1+ mg/dL (Negative); Leukocyte Esterase Ur 1+ LEU/UL (Negative); Nitrate Urine Negative (Negative); Non Pathogenic Casts 0-2; Protein Urine Trace mg/dL (Negative); Specific Grav Ur 1.017 (1.001-1.035); Squamous Epithelial Cell Urine None Seen /hpf (Few); Urobilinogen Urine 0.2 mg/dL (<2.0); pH Urine 5.5 (5.0-9.0)
[2024-08-15 10:19] LABS: Lactic Acid Reflex 2.8 mmol/L (0.7-2.0)
[2024-08-15 10:24] LABS: Albumin Level 4.3 g/dL (3.5-5.1); Alkaline Phosphatase 73 U/L (38-126); Anion Gap 12 mmol/L (4-12); Aspartate Amino Transferase 146 U/L (14-36); Bilirubin,Total 0.8 mg/dL (0.2-1.3); Blood Urea Nitrogen 24 mg/dL (7-17); Calcium 9.5 mg/dL (8.4-10.2); Carbon Dioxide 24 mmol/L (22-30); Chloride 97 mmol/L (98-107); Estimated CRCL calculation 28 ml/min; Estimated Glomerular Filt Rate 43; Glucose 128 mg/dL (65-110); Potassium 3.8 mmol/L (3.4-5.0); Sodium 133 mmol/L (137-145)
--- NOTE | 2024-08-15 10:24 | ED.AMS ---
HPI - Altered Mental Status General Chief Complaint: Altered Mental Status Stated Complaint: AMS, LKW unknown Time Seen by Provider: 08/15/24 09:27 History of Present Illness HPI narrative: Patient is an 83-year-old female who presents ER with altered mental status. Last known well was 08/11/2024. She was confused when she went to synagogue the next day. Found confused in her home today with dirty feet and trying to give herself a perm. No reported history of trauma. 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 Patient is alert to self and place and cannot provide any additional history. There is no facial droop or arm/ leg drift. No distress. History provided by children. Related Data Home Medications Medication Instructions Recorded Confirmed aspirin 81 mg tablet 81 mg PO EVERY OTHER DAY 10/03/20 08/15/24 calcium 600 mg capsule 1 mg PO HS 10/03/20 08/15/24 cholecalciferol (vitamin D3) 25 25 mcg PO HS 10/03/20 08/15/24 mcg (1,000 unit) tablet multivitamin,hn-gcpf-owtysicd 1 tablet PO HS 10/03/20 08/15/24 (Complete Multivitamin tablet) omega-3 fatty acids-fish oil 360 1 cap PO HS 10/03/20 08/15/24 mg-1,200 mg capsule (Fish Oil) Allergies Allergy/AdvReac Type Severity Reaction Status Date / Time No Known Allergies Allergy Unknown Verified 08/15/24 09:57 Review of Systems Review of Systems: ROS unobtainable: Yes unobtainable due to mental status PMFSH Past Medical History Medical History (Updated 08/15/24 @ 10:43 by Godwin Cheng MD) Constipation, unspecified Essential (primary) hypertension Hemorrhagic cystitis Herpes zoster without mention of complication Hx of renal cell cancer Hyperlipidemia, unspecified Hypothyroidism, unspecified Paraspinal muscle spasm Rash Renal cell cancer nephrectomy 12-20 Renal mass, right Unspecified sensorineural hearing loss Surgical History Surgical History H/O partial nephrectomy History of nephrectomy Family History Family History Father Family history of cardiovascular disease, Onset Age: 79 Acute myocardial infarction Heart disease Mother Family history of malignant neoplasm of brain, Onset Age: 56 Sibling No problems noted. 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 Gender identity (if verbalized by the patient): Female Sexual Orientation (if Verbalized by the Patient): Straight or Heterosexual Spiritual care concerns: No Exam Narrative: GENERAL: Well-appearing, well-nourished, and in no acute distress. HEAD: Normocephalic, atraumatic. EYES: PERRL and EOMI. ENT: Mucous membranes moist. CHEST: Clear to auscultation. No respiratory distress. HEART: Regular rate and rhythm. Normal peripheral pulses. ABDOMEN: Soft, nontender, nondistended. EXTREMITIES: Normal range of motion. No edema. SKIN: Warm, dry, no rash. NEURO: No facial asymmetry. Sensation intact grossly in arms and legs. No slurred speech or expressive aphasia. No upper/lower extremity drift. Normal finger-nose testing. Alert and oriented x2. Course Course Emergency Course: Family informed of imaging results. Discussed case wit
[2024-08-15 10:32] LABS: Alanine Aminotransferase 61 U/L (6-35)
[2024-08-15] MEDS: levETIRAcetam 1000MG/NACL100ML 1,000 MG/100 ML BAG 400 MG IVPB (10:40)
[2024-08-15] MEDS: niCARdipine 20 MG/200 ML 20 MG/200 ML BAG 50 MG IV CONT (10:50)
[2024-08-15] MEDS: TUBING, BLOOD SET 1 EACH XX (10:53)
[2024-08-15] MEDS: SODIUM CHLORIDE 0.9% IV 250 ML 30 ML IV CONT (10:53)
--- NOTE | 2024-08-15 10:56 | PC.NURSE ---
Platelets infused at this time
[2024-08-15 12:56] LABS: Reflex Lactic Acid Yes or No Add Lactic
== END 2024-08-15 11:36 | disposition short-term general hospital (02) ==
PROVIDERS: Emergency Provider Emergency Medicine; PCP Family Medicine
DX: I60.9 Nontraumatic subarachnoid hemorrhage, unspecified (principal); I61.8 Other nontraumatic intracerebral hemorrhage; R29.700 NIHSS score 0; I10 Essential (primary) hypertension; Z85.528 Personal history of other malignant neoplasm of kidney; E78.5 Hyperlipidemia, unspecified; E03.9 Hypothyroidism, unspecified; Z90.5 Acquired absence of kidney; Z79.82 Long term (current) use of aspirin; Z79.899 Other long term (current) drug therapy; R00.1 Bradycardia, unspecified; R94.31 Abnormal electrocardiogram [ECG] [EKG]
CPT/HCPCS: 36415; 36430; 70450; 71045; 80053; 81001; 82948; 83605; 85025; 86900; 86901; 87086; 93005; 96361; 96365; 96375; 99291; J1953; J2404; J7050; P9034

== ENCOUNTER 2025-01-02 08:54 | Outpatient (CLI) | payer MEDICARE, SELFPAY ==
[2025-01-02 09:12] LABS: Basophils Absolute Auto 0.1 K/mm3 (0.0-0.1); Basophils Percent Auto 0.7 % (0.2-1.2); Eosinophils Absolute Auto 0.2 K/mm3 (0-0.3); Eosinophils Percent Auto 2.3 % (0-4.4); Hematocrit 38.2 % (37.0-47.0); Hemoglobin 12.6 g/dL (12.0-15.0); Immature Granulocyte Absolute 0.03 K/mm3 (0.00-0.031); Immature Granulocyte Percent A 0.4 % (0-0.5); Lymphocytes Absolute Auto 1.82 K/mm3 (0.9-3.2); Lymphocytes Percent Auto 21.8 % (18.3-44.2); Mean Corpuscular Hemoglobin 30.8 pg (26-34); Mean Corpuscular Volume 93.4 fl (80-100); Mean Platelet Volume 9.9 fl (7.4-10.4); Monocytes Absolute Auto 0.6 K/mm3 (0.1-0.6); Monocytes Percent Auto 7.2 % (2.6-8.5); Neutrophils Absolute Auto 5.7 K/mm3 (1.3-6.7); Neutrophils Percent Auto 67.6 % (45.5-73.1); Platelet Count Result 197 k/mm3 (150-375); Red Blood Count 4.09 M/mm3 (4.2-5.4); Red Cell Distribution Width 12.7 % (11.5-14.5); White Blood Count 8.4 K/mm3 (4.5-10.0)
[2025-01-02 09:15] LABS: Blood Urea Nitrogen 20 mg/dL (8-26); Carbon Dioxide 26 mmol/L (22-30); Chloride 99 mmol/L (98-109); Estimated Glomerular Filt Rate 47; Glucose 97 mg/dL (70-105); Ionized Calcium (POC) 1.25 mmol/L (1.11-1.31); Potassium 4.3 mmol/L (3.5-4.9); Sodium 136 mmol/L (138-146)
--- OUTSIDE RECORDS SUMMARY | 2025-01-02 09:20 | XMS_ITS | Clinical Summary ---
Author Organization [facility] Address [address] [place] [address] Care Team Providers Care Buttonhole Tacker Name Role Phone Amadeo Nava MD Primary Care Provider [phone] Allergies No known active allergies Medications atorvastatin (LIPITOR) 20 mg tablet Take 1 tablet (20 mg total) by mouth nightly 05/26/20 21 Active levothyroxine (SYNTHROID) 75 mcg tablet Take 1 tablet (75 mcg total) by mouth early childhood education worker before breakfast 05/26/20 21 Active alendronate (FOSAMAX) 70 mg tablet Take 1 tablet (70 mg total) by mouth every 7 days Tuesday05/26/20 21 Active CALCIUM ORAL Take 1 Dose by mouth nightly Active MULTIVITAMIN ORAL Take 1 Dose by mouth nightly Active valsartan (DIOVAN) 160 mg tablet Take 1 tablet (160 mg total) by mouth every morning 07/06/20 21 Active ferrous sulfate 325 mg (65 mg of elemental iron) tablet Take 1 tablet (325 mg total) by mouth nightly Active omega-3 fatty acids-fish oil 360-1,200 mg capsule Take 1 capsule by mouth nightly Active acebutoloL (SECTRAL) 200 mg capsuleIndicati ons:hypertensio n Take 1 capsule (200 mg total) by mouth nightly HELD while inpatient, resume as BP/HR allows. 08/22/20 24 Active bisacodyL (DULCOLAX) 10 mg suppositoryIndi cations:constip ation Insert 1 suppository (10 mg total) into the rectum daily as needed for constipation 08/22/20 Active docusate sodium (COLACE) 100 mg capsuleIndicati ons:constipatio n,Stool Softener Take 1 capsule (100 mg total) by mouth 2 (two) times a day 08/22/20 Active polyethylene glycol (MIRALAX) 17 gram/dose bulk powderIndicatio ns:constipation Take 17 g by mouth daily as needed (constipation) 08/22/20 Active polyvinyl alcohol-povidon e (REFRESH CLASSIC) 1.4-0.6 % dropperette Administer 1 drop into both eyes 3 (three) times a day as needed for dry eyes 08/22/20 Active senna (SENOKOT) 8.6 mg tabletIndicatio ns:constipation Take 1 tablet by mouth 2 (two) times a day 08/22/20 24 Active aspirin 81 mg enteric coated tablet Take 1 tablet (81 mg total) by mouth every other day 025 Discontin ued(Thera py completed ) acetaminophen (TYLENOL) 325 mg tabletIndicatio ns:Fever,Pain Take 2 tablets (650 mg total) by mouth every 4 (four) hours as needed for pain 08/22/20 025 Discontin ued(Thera py completed ) Active Problems Problem Noted Date Diagnosed Date SAH (subarachnoid hemorrhage) 08/15/2024 PVC's (premature ventricular contractions) 11/16 Essential hypertension 11/16/2023 Cardiomegaly 11/16/2023 Nonrheumatic mitral (valve) prolapse 11/16/2023 Nonrheumatic aortic (valve) insufficiency 2023 Syncope and collapse 11/16/2023 Sensorineural hearing loss of both ears 07/15/20 21 Encounters Date Type Department Care Team Description 12/20/2024 12:00 PM WIRED MUSIC OPERATOR Office Visit [facility] Neurosurgery [address], [address] [place] [address] Lizzeth Glaser, TRAFFIC LINE PAINTER Brain bleed (HCC) 12/20/2024 9:39 AM WIRED MUSIC OPERATOR - 12/20/2024 11:59 PM WIRED MUSIC OPERATOR Hospital Encounter [facility] [address] [place] [address] Brain bleed (HCC) Discharge Disposition: Discharge to home or self care 11/22/2024 1:00 PM WIRED MUSIC OPERATOR Procedure visit [facility] Otolaryngology [address] [facility] [address] [place] [address] [place] [address] Anahi Nguyen Au.D. Sensorineural hearing loss, bilateral (Primary Dx); Encounter for adjustment and management of cochlear device 11/20/2024 Telephone [facility] Scheduling [address] [place] [address] Vickie Mason 11/13/2024 Orders Only [facility] Neurosurgery [address], [address] [place] [address] Lizzeth Glaser, NAS Brain bleed (HCC) (Primary Dx) 11/08/2024 12:47 PM WIRED MUSIC OPERATOR - 11/08/2024 11:59 PM WIRED MUSIC OPERATOR Hospital Encounter [facility] [address] [place] [address] Brain bleed (HCC) Discharge Disposition: Discharge to home or self care 10/15/2024 9:45 AM WIRED MUSIC OPERATOR Office Visit [facility] Cardiology [address] [place] [address] Aron Ewing MD PVC's (premature ventricular contractions) (Primary Dx); Nonrheumatic mitral (valve) prolapse; Nonrheumatic aortic (valve) insufficiency; Essential hypertension; Cardiomegaly 10/08/2024 9:15 AM WIRED MUSIC OPERATOR Ancillary Procedure [facility] [address] [place] [address] Nonrheumatic aortic (valve) insufficiency from Last 3 Months Surgical History Surgery Date Site/Laterality Comments NEPHRECTOMY 09/30/2020 - 10/30/2020 Right [facility] Medical History Medical History Date Comments HTN (hypertension) Carcinoma (HCC) kidney cell Renal cell carcinoma (HCC) Family History Medical History Relation Name Comments No Known Problems Brother Heart failure Father Brain tumor Mother Heart failure Sister Anesthesia problems Neg Hx Relation Name Status Comments Brother Alive Father Mother Sister Alive Social History Tobacco Use Types Packs/Day Years Used Date Smoking Tobacco: Never Passive Smoke Exposure: Past Smokeless Tobacco: Never Tobacco Cessation:Counseling Given: Not Answered AUDIT-C Answer Date Recorded Q1: How often do you have a drink containing alc ohol? Never 09/15/2021 Average Number of Drinks Not on file 021 Frequency of Binge Drinking Not on file 08/31 PHQ-2 Answer Date Recorded PHQ-2 Total Score (If total score is 3 or more points, staff should administer the PHQ-9) 0 08/22/2024 Personal Safety Answer Date Recorded Have you ever been in or are you currently in a harmful physical or emotional relationship or is someone making you feel afraid or unsafe? Denies 08/15/2024 Comments No Sex and Gender Information Value Date Recorded Sex Assigned at Not on file Legal Sex Female 3:03 PM CDT Gender Identity Not on file Sexual Orientation Not on file Obstetrics History Last Filed Vital Signs Vital Sign Reading Time Taken Comments Blood Pressure 136/62 12/20/2024 12:01 PM WIRED MUSIC OPERATOR Pulse 56 12/20/2024 12:01 PM WIRED MUSIC OPERATOR Temperature 36.4 C (97.5 F) 08/23/2024 11:13 AM CDT Respiratory Rate 18 12/20/2024 12:01 PM WIRED MUSIC OPERATOR Oxygen Saturation 100% 12/20/2024 12:01 PM WIRED MUSIC OPERATOR Inhaled Oxygen Concentration - - Weight 58.8 kg (129 lb 9.6 oz) 12/20/2024 12:01 PM WIRED MUSIC OPERATOR Height 162.6 cm (5' 4 ) 12/20/2024 12:01 PM WIRED MUSIC OPERATOR Body Mass Index 22.25 12/20/2024 12:01 PM WIRED MUSIC OPERATOR Plan of Treatment Health Maintenance Due Date Last Done Comments DTaP/Tdap/Td Vaccine (1 - Tdap) 1949 Hepatitis B Screening 1956 Pneumococcal vaccine 65+ (1 of 2 - PCV) 1957 Zoster Vaccine (1 of 2) 1988 Well Visit 65+ 2003 Covid-19 Vaccine (3 - season) 07/01/202402/2021, 12/12/2020 Influenza Vaccine (#1) 2024 07/17/2019, 2017 Depression Screening 08/15/2025 08/15/2024 Fall Risk Assessment 08/23/2025 08/23/2024 Medical Devices Implanted Type Area Low Raw Sugar Cutter Device Identifier Shelf Expiration Date Model / Serial / Lot Cochlear Ramon [id number] Implant Cochlear Cochlear Nucleus Profile Plus Slim Modiolar Electrode [id number] - [id number] - [id number] Implanted:Qty : 1 on 09/22/2021 by Tobias Roth MD at [facility] Left: Cochlea Cochlear Ramon [id number] 08/24/2023 [id number] / [id number] / Procedures Procedure Name Priority Date/Time Associated Diagnosis Comments CT HEAD WO CONTRAST Schedule Routine, Read Routine (OP Routine) 12/20/2024 10:00 AM WIRED MUSIC OPERATOR Brain bleed (HCC) AUDBASE RESULTS 11/22/2024 12:44 PM WIRED MUSIC OPERATOR MRI BRAIN W WO CONTRAST MRA MRV HEAD WO CONTRAST Schedule Routine, Read Routine (OP Routine) 11/08/2024 2:46 PM WIRED MUSIC OPERATOR Brain bleed (HCC) TRANSTHORACIC ECHO (TTE) COMPLETE W DOPPLER/CF WO CONTRAST Routine 10/08/2024 10:26 AM WIRED MUSIC OPERATOR Nonrheumatic aortic (valve) insufficiency from Last 3 Months Results * CT Head WO Contrast (12/20/2024 10:00 AM WIRED MUSIC OPERATOR) Anatomical Region Laterality Modality Head and Neck N/A Computed Tomogra phy 12/20/2024 10:3 2 AM WIRED MUSIC OPERATOR Impressions 12/20/2024 10:32 AM WIRED MUSIC OPERATOR Artifact from the patient's left cochlear implant limits evaluation of adjacent structure. Interval decrease in size of previously described left frontal subarachnoid hemorrhage with interval resolution of mass effect on the left lateral ventricle now with associated ex vacuo dilatation of the anterior horn of the left lateral ventricle from encephalomalacia. No gross areas of hemorrhage. Electronically signed by: Tanvi Cordero M.D. Narrative 12/20/2024 10:32 AM WIRED MUSIC OPERATOR EXAMINATION: CT head without contrast HISTORY: Follow-up intracranial hemorrhage TECHNIQUE: CT of the head was performed with images acquired from skull base to vertex without intravenous contrast. COMPARISON: Head CT dated 09/19/2024. MR brain dated 11/08/2024. FINDINGS: Artifact from the patient's left cochlear implant limits evaluation of adjacent structure. Interval decrease in size of previously described left frontal subarachnoid hemorrhage with interval resolution of mass effect on the left lateral ventricle now with associated ex vacuo dilatation of the anterior horn of the left lateral ventricle. No gross areas of hemorrhage. Moderate intracranial atherosclerotic disease. Bilateral lens replacements. Postoperative changes of left cochlear implant. The visualized portions of the paranasal sinuses are normal. No fractures are identified. Severe degenerative change of the left temporomandibular joint. Procedure Note Tanvi Dubon MD - 12/20/2024 EXAMINATION: CT head without contrast HISTORY: Follow-up intracranial hemorrhage TECHNIQUE: CT of the head was performed with images acquired from skull base to vertex without intravenous contrast. COMPARISON: Head CT dated 09/19/2024. MR brain dated 11/08/2024. FINDINGS: Artifact from the patient's left cochlear implant limits evaluation of adjacent structure. Interval decrease in size of previously described left frontal subarachnoid hemorrhage with interval resolution of mass effect on the left lateral ventricle now with associated ex vacuo dilatation of the anterior horn of the left lateral ventricle. No gross areas of hemorrhage. Moderate intracranial atherosclerotic disease. Bilateral lens replacements. Postoperative changes of left cochlear implant. The visualized portions of the paranasal sinuses are normal. No fractures are identified. Severe degenerative change of the left temporomandibular joint. IMPRESSION: Artifact from the patient's left cochlear implant limits evaluation of adjacent structure. Interval decrease in size of previously described left frontal subarachnoid hemorrhage with interval resolution of mass effect on the left lateral ventricle now with associated ex vacuo dilatation of the anterior horn of the left lateral ventricle from encephalomalacia. No gross areas of hemorrhage. Electronically signed by: Tanvi Cordero M.D. Lizzeth Glaser NP IMG CT PROCEDURES Final Result * AudBase Results (11/22/2024 12:44 PM WIRED MUSIC OPERATOR) us Provider Scanning AUDIOLOGY SERVICES ORDERABLES Final Result * MRI Brain W WO Contrast and MRA MRV Head WO Contrast (11/08/2024 2:46 PM WIRED MUSIC OPERATOR) Anatomical Region Laterality Modality Head and Neck N/A Magnetic Resonan ce 11/08/2024 3:47 PM WIRED MUSIC OPERATOR Impressions 11/08/2024 4:23 PM WIRED MUSIC OPERATOR 1. Artifact from the patient's left cochlear implant limits evaluation of adjacent structures across all sequences, greatest on diffusion and susceptibility sequences as well as MRA. 2. Decreased left frontal intraparenchymal hematoma compared to 08/17/2024 with surrounding vasogenic edema. CTA is recommended to better evaluate for vascular abnormality. Dictated by: Ai Christianson DO The radiology attending physician has personally reviewed this study, and had reviewed and/or edited this written report and agrees with it. Electronically signed by: Aron Stuart M.D. Ph.D. Narrative 11/08/2024 4:23 PM WIRED MUSIC OPERATOR EXAMINATION: 1. Magnetic resonance imaging (MRI) of the brain and brainstem without and with contrast 2. Magnetic resonance angiography (MRA) of the blsmdc-xr-Npurmk without contrast HISTORY: 84-year-old woman with history of renal cell carcinoma status post nephrectomy in 2019 admitted for left frontal intraparenchymal and subarachnoid hemorrhage. Follow up. TECHNIQUE: Multiplanar multi-weighted MRI of the brain and brainstem was performed without and with intravenous contrast using a custom brain protocol modified by the radiologist including a compressed sensing [facility] 2D T2-weighted SHYAM scan, given patient's cochlear implant device. Magnetic resonance angiography of the vrbotm-vj-Rloubr was performed using a separate data acquisition with a non-contrast [id number]-ls-[id number] technique to produce axial thin-slice source images. These images were then used to generate maximum intensity projection (MIP) images. Contrast information: 10 mL Gadoterate Meglumine COMPARISON: MRI brain dated 08/17/2024, CT head 09/19/2024 FINDINGS: Artifact from the patient's left cochlear implant limits evaluation of adjacent structures across all sequences, greatest on diffusion and susceptibility sequences as well as MRA. Centrally T1 and T2 hyperintense, peripherally T1 and T2 hypointense irregular collection in the left frontal lobe measuring approximately 1.3 x .4 cm in transaxial dimensions, decreased in overall size from 08/17/2024. There is surrounding white matter T2 and T2/FLAIR hyperintensity which may represent vasogenic edema. Decreased mass effect on the left lateral ventricle. The visualized portions of the scalp and calvarium are unremarkable. The superior sagittal sinus demonstrates normal venous flow. The corpus callosum is normal in shape and signal intensity. The visualized portions of the posterior fossa is unremarkable. The pituitary and sella are normal. The visualized brainstem and craniocervical junction are unremarkable. Diffusion weighted images are nondiagnostic secondary to artifact. The susceptibility weighted sequences are nondiagnostic secondary to artifact. No evidence of hydrocephalus. Parenchymal volume loss. The paranasal sinuses are aerated. Left mastoid effusion. Bilateral lens replacements. Normal flow voids are demonstrated in the carotid arteries and basilar artery. MRA: Artifact from the patient's cochlear implant limits evaluation of adjacent structures. The visualized portions of the internal carotid arteries in the head are patent. The zlqqiu-yv-Bnxqzr is complete. The anterior cerebral arteries are patent with some limitation in evaluation secondary to artifact from the patient's cochlear implant. The left middle cerebral artery is not well evaluated due to artifact from the patient's cochlear implant. The right middle cerebral artery is patent. The vertebral arteries, basilar artery, and posterior cerebral arteries are not well evaluated due to artifact. Although MRA is a screening examination, catheter angiography remains the definitive study for small aneurysms, vasculitis, and other vascular abnormalities. Procedure Note Aron Stuart MD PhD - 11/08/2024 EXAMINATION: 1. Magnetic resonance imaging (MRI) of the brain and brainstem without and with contrast 2. Magnetic resonance angiography (MRA) of the njpusk-su-Yjymfb without contrast HISTORY: 84-year-old woman with history of renal cell carcinoma status post nephrectomy in 2019 admitted for left frontal intraparenchymal and subarachnoid hemorrhage. Follow up. TECHNIQUE: Multiplanar multi-weighted MRI of the brain and brainstem was performed without and with intravenous contrast using a custom brain protocol modified by the radiologist including a compressed sensing [facility] 2D T2-weighted SHYAM scan, given patient's cochlear implant device. Magnetic resonance angiography of the ochron-oy-Qggaqt was performed using a separate data acquisition with a non-contrast vnxw-pt-abkbmj technique to produce axial thin-slice source images. These images were then used to generate maximum intensity projection (MIP) images. Contrast information: 10 mL Gadoterate Meglumine COMPARISON: MRI brain dated 08/17/2024, CT head 09/19/2024 FINDINGS: Artifact from the patient's left cochlear implant limits evaluation of adjacent structures across all sequences, greatest on diffusion and susceptibility sequences as well as MRA. Centrally T1 and T2 hyperintense, peripherally T1 and T2 hypointense irregular collection in the left frontal lobe measuring approximately 1.3 x .4 cm in transaxial dimensions, decreased in overall size from 08/17/2024. There is surrounding white matter T2 and T2/FLAIR hyperintensity which may represent vasogenic edema. Decreased mass effect on the left lateral ventricle. The visualized portions of the scalp and calvarium are unremarkable. The superior sagittal sinus demonstrates normal venous flow. The corpus callosum is normal in shape and signal intensity. The visualized portions of the posterior fossa is unremarkable. The pituitary and sella are normal. The visualized brainstem and craniocervical junction are unremarkable. Diffusion weighted images are nondiagnostic secondary to artifact. The susceptibility weighted sequences are nondiagnostic secondary to artifact. No evidence of hydrocephalus. Parenchymal volume loss. The paranasal sinuses are aerated. Left mastoid effusion. Bilateral lens replacements. Normal flow voids are demonstrated in the carotid arteries and basilar artery. MRA: Artifact from the patient's cochlear implant limits evaluation of adjacent structures. The visualized portions of the internal carotid arteries in the head are patent. The [id number]-mk-Ddxbsx is complete. The anterior cerebral arteries are patent with some limitation in evaluation secondary to artifact from the patient's cochlear implant. The left middle cerebral artery is not well evaluated due to artifact from the patient's cochlear implant. The right middle cerebral artery is patent. The vertebral arteries, basilar artery, and posterior cerebral arteries are not well evaluated due to artifact. Although MRA is a screening examination, catheter angiography remains the definitive study for small aneurysms, vasculitis, and other vascular abnormalities. IMPRESSION: 1. Artifact from the patient's left cochlear implant limits evaluation of adjacent structures across all sequences, greatest on diffusion and susceptibility sequences as well as MRA. 2. Decreased left frontal intraparenchymal hematoma compared to 08/17/2024 with surrounding vasogenic edema. CTA is recommended to better evaluate for vascular abnormality. Dictated by: Ai Christianson DO The radiology attending physician has personally reviewed this study, and had reviewed and/or edited this written report and agrees with it. Electronically signed by: Aron Stuart M.D. Ph.D. us Lizzeth Glaser NP IMG MRI PROCEDURES Final Resul t * TRANSTHORACIC ECHO (TTE) COMPLETE W DOPPLER/CF WO CONTRAST (10/08/2024 10:26 AM WIRED MUSIC OPERATOR) Anatomical Region Laterality Modality Ultrasound 10/08/2024 9:53 AM WIRED MUSIC OPERATOR Narrative 10/08/2024 10:43 AM WIRED MUSIC OPERATOR [facility] [address] [facility] [address] [facility] [address] [address] [address], [place] [address] P:[phone] P:[phone] Echocardiographic Report Patient Name: PATTI PATEL : 1940 Study Date: 10/08/2024 9:53:26 AM Gender: F Tech: Location: [facility] Provider: PIA VERDE Height(Cm): 165 BSA: 1.64 Weight(Kg): 59 Heart Rate: 62 BP: 125 / 63 Quality: Good Order Provider: PIA VERDE PROCEDURES: Echocardiographic Report: Transthoracic echocardiogram with complete 2D, M-Mode, and color Doppler examination. INDICATIONS: I35.1 Nonrheumatic aortic (valve) insufficiency. MEASUREMENTS: 2D/MM Value Range Doppler Value Range Estimated EF 62 % MARILYN Vmax 1.32 cm2 [ 2.00 - 4.00 ] LVIDd 2D 3.65 cm [ 3.80 - 5.20 ] AV Mean PG 14 mmHg LVIDs 2D 2.27 cm [ 2.20 - 3.50 ] AV Peak Mir 2.52 m/s [ 1.00 - 1.70 ] LVPWd 2D 1.06 cm [ 0.60 - 0.90 ] AV Peak PG 25 mmHg IVSd 2D 1.06 cm [ 0.60 - 0.90 ] AV VTI 57.66 cm LA Volume Index 31 cc/m2 [ 16 - 34 ] LVOT Diam 1.86 cm [ 1.70 - 2.10 ] LVOT Peak Mir 1.22 m/s [ 0.70 - 1.10 ] LVOT VTI 29.72 cm MV E Peak Mir 1.10 m/s [ 0.60 - 1.30 ] MV A Peak Mir 1.15 m/s [ 1.00 - 1.20 ] MV Decel Time 288 msec [ 104 - 258 ] TR Peak Mir 2.54 m/s [ 1.00 - 2.80 ] TR Peak PG 26 mmHg Lateral E` 0.06 m/s [ 0.10 - 0.15 ] E` 0.06 m/s E/E` 19 2D/MM Value Range Doppler Value Range - FINDINGS: Interpretation Site: Exam [facility] interpreted at [facility]. Left Ventricle: Normal left ventricular systolic function. No focal wall motion abnormalities. Normal left ventricular size. Normal left ventricular wall thickness. There is pseudonormal diastolic dysfunction Grade II. Ejection Fraction is visually estimated to be 62 %. Global Longitudinal Strain is -20 %. GLS is normal. Right Ventricle: Normal right ventricular size. Normal right ventricular systolic function. Left Atrium: There is mild enlargement of left atrium. Right Atrium: The right atrium is normal in size. Atrial Septum: Normal atrial septum. Mitral Valve: Mild mitral annular calcification. Mild mitral valve regurgitation. There is no hemodynamically significant mitral stenosis by Doppler. Aortic Valve: Mild to moderate aortic stenosis. Mean gradient of 14.0 mmHg. Valve area of 1.3 cm2. Aortic cusps appear severely sclerotic. Probable trileaflet aortic valve, although not all leaflets are visualized. Mild aortic valve regurgitation. Tricuspid Valve: Normal appearance of the tricuspid valve. Estimated peak RVSP is 31 mmHg. Mild tricuspid regurgitation. Pulmonic Valve: Normal appearance of the pulmonic valve. Mild pulmonic regurgitation. Pericardium: Normal pericardium with no significant pericardial effusion. Aorta: Sinus of Valsalva is normal. IVC: Normal size and normal respiratory collapse consistent with normal right atrial pressure (<5 mmHg). Pulmonary Artery: Normal pulmonary artery size. CONCLUSIONS: Normal left ventricular systolic function. No focal wall motion abnormalities. Normal left ventricular size. Normal left ventricular wall thickness. There is pseudonormal diastolic dysfunction Grade II. Ejection Fraction is visually estimated to be 62 %. Global Longitudinal Strain is -20 %. GLS is normal. There is mild enlargement of left atrium. Mild mitral annular calcification. Mild mitral valve regurgitation. Mild to moderate aortic stenosis. Mean gradient of 14.0 mmHg. Valve area of 1.3 cm2. Aortic cusps appear severely sclerotic. Probable trileaflet aortic valve, although not all leaflets are visualized. Mild aortic valve regurgitation. Estimated peak RVSP is 31 mmHg. Mild tricuspid regurgitation. Mild pulmonic regurgitation. Electronically Signed By: Dr. Michelle Peña [facility] 10/08/2024 10:42:16 AM WIRED MUSIC OPERATOR Procedure Note Michelle Peña MD - 10/08/2024 [facility] [address] [facility] [address] [id number] [address] [address] P:[phone] P:[phone] Echocardiographic Report Patient Name: PATTI PATEL : 1940 Study Date: 10/08/2024 9:53:26 AM Gender: F Tech: Location: [facility] Provider: PIA VERDE Height(Cm): 165 BSA: 1.64 Weight(Kg): 59 Heart Rate: 62 BP: 125 / 63 Quality: Good Order Provider: PIA VERDE PROCEDURES: Echocardiographic Report: Transthoracic echocardiogram with complete 2D, M-Mode, and color Dopplerexamination. INDICATIONS: I35.1 Nonrheumatic aortic (valve) insufficiency. MEASUREMENTS: 2D/MM Value Range Doppler ValueRange Estimated EF 62 % MARILYN Vmax 1.32cm2 [ 2.00 - 4.00 ] LVIDd 2D 3.65 cm [ 3.80 - 5.20 ] AV Mean PG 14mmHg LVIDs 2D 2.27 cm [ 2.20 - 3.50 ] AV Peak Mir 2.52m/s [ 1.00 - 1.70 ] LVPWd 2D 1.06 cm [ 0.60 - 0.90 ] AV Peak PG 25mmHg IVSd 2D 1.06 cm [ 0.60 - 0.90 ] AV VTI 57.66cm LA Volume Index 31 cc/m2 [ 16 - 34 ] LVOT Diam 1.86 cm[ 1.70 - 2.10 ] LVOT Peak Mir 1.22 m/s [ 0.70 - 1.10 ] LVOT VTI 29.72 cm MV E Peak Mir 1.10 m/s [ 0.60 - 1.30 ] MV A Peak Mir 1.15 m/s [ 1.00 - 1.20 ] MV Decel Time 288 msec [ 104 - 258 ] TR Peak Mir 2.54 m/s [ 1.00 - 2.80 ] TR Peak PG 26 mmHg Lateral E` 0.06 m/s [ 0.10 - 0.15 ] E` 0.06 m/s E/E` 19 2D/MM Value Range Doppler ValueRange - FINDINGS: Interpretation Site: [facility] at [facility]. Left Ventricle: Normal left ventricular systolic function. No focal wall motionabnormalities. Normal left ventricular size. Normal left ventricular wall thickness. There ispseudonormal diastolic dysfunction Grade II. Ejection Fraction is visually estimated arnoldo 62 %. Global Longitudinal Strain is -20 %. GLS is normal. Right Ventricle: Normal right ventricular size. Normal right ventricular systolicfunction. Left Atrium: There is mild enlargement of left atrium. Right Atrium: The right atrium is normal in size. Atrial Septum: Normal atrial septum. Mitral Valve: Mild mitral annular calcification. Mild mitral valve regurgitation. Thereis no hemodynamically significant mitral stenosis by Doppler. Aortic Valve: Mild to moderate aortic stenosis. Mean gradient of 14.0 mmHg. Valve areaof 1.3 cm2. Aortic cusps appear severely sclerotic. Probable trileaflet aortic valve,although not all leaflets are visualized. Mild aortic valve regurgitation. Tricuspid Valve: Normal appearance of the tricuspid valve. Estimated peak RVSP is 31 mmHg.Mild tricuspid regurgitation. Pulmonic Valve: Normal appearance of the pulmonic valve. Mild pulmonic regurgitation. Pericardium: Normal pericardium with no significant pericardial effusion. Aorta: Sinus of Valsalva is normal. IVC: Normal size and normal respiratory collapse consistent with normal rightatrial pressure (<5 mmHg). Pulmonary Artery: Normal pulmonary artery size. CONCLUSIONS: Normal left ventricular systolic function. No focal wall motionabnormalities. Normal left ventricular size. Normal left ventricular wall thickness. There ispseudonormal diastolic dysfunction Grade II. Ejection Fraction is visually estimated arnoldo 62 %. Global Longitudinal Strain is -20 %. GLS is normal. There is mild enlargement of left atrium. Mild mitral annular calcification. Mild mitral valve regurgitation. Mild to moderate aortic stenosis. Mean gradient of 14.0 mmHg. Valve areaof 1.3 cm2. Aortic cusps appear severely sclerotic. Probable trileaflet aortic valve,although not all leaflets are visualized. Mild aortic valve regurgitation. Estimated peak RVSP is 31 mmHg. Mild tricuspid regurgitation. Mild pulmonic regurgitation. Electronically Signed By: Dr. Michelle Peña [facility] 10/08/2024 10:42:16 AM WIRED MUSIC OPERATOR Pia Verde NP CV ECHO PROCEDURES Final Result from Last 3 Months Insurance MEDICARE SOLUTIONS MEDICARE MEDICARE SOLUTIONS Advance Directives For more information, please contact: [phone] Documents on File Type Date Recorded Patient Journalists And Other Writers Expl anation ADVANCE DIRECTIVE 09/22/2021 7:10 AM Shannan Pfeiffer * Full Code (Latest Code Status on File) Date Activated Date Inactivated Comments 08/15/2024 8:20 PM 08/23/2024 5:53 PM Care Teams Buttonhole Tacker Relationship Specialty Start Date End Date Amadeo Nava MD PCP - General Family Medicine 11/11/23
--- OUTSIDE RECORDS SUMMARY | 2025-01-02 09:20 | XMS_ITS | Clinical Summary ---
Author Organization [facility] Gregg Robb Address [address] [address] Care Team Providers Care Title Manager Name Role Phone Amadeo Nava MD Primary Care Provider [phone] Allergies No known active allergies Medications HYDROcodone-yoni taminophen (NORCO) 5-325 mg tablet TAKE 2 TABLETS BY MOUTH EVERY 4 HOURS NEEDED FOR PAIN RATED 4 TO 6 0 Active sulfamethoxazol e-trimethoprim (BACTRIM DS) 800-160 mg tablet TAKE 1 TABLET BY MOUTH EVERY DAY 0 Active irbesartan-hydr oCHLOROthiazide (AVALIDE) 150-12.5 mg tablet Take 1 Tablet by mouth daily. Active acebutoloL (SECTRAL) 200 mg capsule Take 200 mg by mouth 2 times daily. Active atorvastatin (LIPITOR) 20 mg tablet Take 20 mg by mouth daily. Active levothyroxine 75 mcg tablet Take 100 mcg by mouth daily in the morning. Active alendronate (FOSAMAX) 70 mg tablet Take 70 mg by mouth every 7 days. empty stomach beofore other meds,with full glass of water, stay upright 30 min Active aspirin (ECOTRIN EC) 81 mg Tablet, Delayed Release (E.C.) Take 81 mg by mouth daily. Active calcium as carbonate (CALTRATE) 1,500 mg (600 mg elemental) Tablet Take by mouth. Activ e Fish Oil-[place]-3 Fatty Acids 360-1,200 mg Capsule Take 1 Capsule by mouth. Active cholecalciferol , Vitamin D3, (VITAMIN D3) 25 mcg (1,000 unit) Capsule Take by mouth daily. Active multivitamin (DAILY-KARLO) tablet Take 1 Tablet by mouth daily. Active clotrimazole-be tamethasone (LOTRISONE) 1-0.05 % Cream APPLY TOPICALLY TO THE AFFECTED AREA TWICE DAILY 1 Active valsartan (DIOVAN) 160 mg tablet 1 Active ferrous sulfate 325 mg (65 mg iron) tablet Take 325 mg by mouth daily. Active Active Problems Problem Noted Date Diagnosed Date Renal cell carcinoma of right kidney 11/05/2020 Encounters Date Type Department Care Team Description 01/02/2025 Orders Only [facility] Oncology and Hematology [facility] [address] [place] [id number] Salvador Crabtree MD Renal cell carcinoma of right kidney (CMS/HCC) (Primary Dx) from Last 3 Months Family History Medical History Relation Name Comments Healthy Daughter Heart Disease Father Brain Cancer Mother Heart Disease Sister Healthy Son Relation Name Status Comments Brother Alive Daughter Alive Father Mother Sister Alive Son Alive Social History Tobacco Use Types Packs/Day Years Used Date Smoking Tobacco: Never Tobacco Cessation:Counseling Given: Not Answered Alcohol Use Standard Drinks/Week Comments Not Currently 0 (1 standard drink = 0.6 oz pur e alcohol) occasional Comments No Sex and Gender Information Value Date Recorded Sex Assigned at Not on file Legal Sex Female 9:40 AM JUNIOR MECHANICAL ENGINEER Gender Identity Not on file Sexual Orientation Not on file Last Filed Vital Signs Vital Sign Reading Time Taken Comments Blood Pressure 128/52 08/15/2023 10:12 AM CDT Pulse 51 08/15/2023 10:12 AM CDT Temperature 37 C (98.6 F) 08/15/2023 10:12 AM CDT Respiratory Rate 12 08/15/2023 10:12 AM CDT Oxygen Saturation 100% 08/15/2023 10:12 AM CDT Inhaled Oxygen Concentration - - Weight 59 kg (130 lb) 08/15/2023 10:12 AM CDT Height 165.1 cm (5' 5 ) 07/15/2022 10:02 AM CDT Body Mass Index 21.63 07/15/2022 10:02 AM CDT Plan of Treatment Upcoming Encounters Date Type Department Care Team (Late st Contact Info) Description 01/02/2025 9:45 AM JUNIOR MECHANICAL ENGINEER Office Visit [facility] Oncology and Hematology [facility] [address] [place] [id number] Salvador Crabtree MD [address] [place] [address] Arrived Health Maintenance Due Date Last Done Comments DTAP/TDAP/TD VACCINES (1 - Tdap) 1957 PNEUMOCOCCAL VACCINE 50+ YEARS (1 of 1 - PCV) 10/10/19 88 ZOSTER VACCINE (1 of 2) 1988 OSTEOPOROSIS SCREENING 2003 RSV VACCINE (60+ or ) (1 - 1-dose 75+ series) 2013 INFLUENZA VACCINE (#1) 2024 Medicare [place]) Prev entative Visit/Annual Wellness Visit 10/31/2024 Insurance [facility] [id number] Care Teams Title Manager Relationship Specialty Start Date End Date Amadeo Nava MD [address] [place] [address] PCP - General Family Practice 07/06/22
--- OUTSIDE RECORDS SUMMARY | 2025-01-02 09:20 | XMS_ITS | Encounter Summary ---
Author Organization [facility] Address [address] [place] [address] Care Team Providers Care Soa Architect Name Role Phone Amadeo Nava MD Primary Care Provider [phone] Encounter Details Date Type Department Care Team ([facility] Contact Info) Description 01/02/2025 Orders Only [facility] Oncology and Hematology [facility] [address] [place] [address] Salvador Crabtree MD [facility] [place] [address] Renal cell carcinoma of right kidney (CMS/HCC) (Primary Dx) Social History Tobacco Use Types Packs/Day Years Used Date Smoking Tobacco: Never Alcohol Use Standard Drinks/Week Comments Not Currently 0 (1 standard drink = 0.6 oz pur e alcohol) occasional Comments No Sex and Gender Information Value Date Recorded Sex Assigned at Not on file Legal Sex Female 9:40 AM WINDOW SYSTEMS ADMINISTRATOR Gender Identity Not on file Sexual Orientation Not on file documented as of this encounter Plan of Treatment Upcoming Encounters Date Type Department Care Team ([facility] Contact Info) Description 01/02/2025 9:45 AM WINDOW SYSTEMS ADMINISTRATOR Office Visit [facility] Oncology and Hematology - [facility] M [address] [place] [address] Salvador Crabtree MD [address] [place] [address] Arrived Scheduled Orders Name Type Priority Associated Diagnoses Orde r Schedule BASIC METABOLIC PANEL Lab Routine Renal cell carcinoma of right kidney (CMS/HCC) Expected: 01/02/2025, Expires: 01/02/2026 CBC WITH DIFFERENTIAL Lab Routine Renal cell carcinoma of right kidney (CMS/HCC) Expected: 01/02/2025, Expires: 01/02/2026 documented as of this encounter Visit Diagnoses Diagnosis Renal cell carcinoma of right kidney (CMS/HCC)- Primary documented in this encounter Care Teams Soa Architect Relationship Specialty Start Date End Date Amadeo Nava MD [address] [place] [address] PCP - General Family Practice 07/06/22 documented as of this encounter
--- OUTSIDE RECORDS SUMMARY | 2025-01-02 09:20 | XMS_ITS | Referral Summary ---
Author Organization [facility] Address [address] [place] [address] Care Team Providers Care Police Department Secretary Name Role Phone Amadeo Nava MD Primary Care Provider [phone] Encounters Date Type Department Care Team Description 12/20/2024 12:00 PM COMPO CONVEYOR OPERATOR Office Visit [facility] [address] [address] [facility] [address], [address] [place] [address] Lizzeth Glaser NP Brain bleed (HCC) 12/20/2024 9:39 AM COMPO CONVEYOR OPERATOR - 12/20/2024 11:59 PM COMPO CONVEYOR OPERATOR Hospital Encounter [facility] [address] [place] [address] Brain bleed (HCC) Discharge Disposition: Discharge to home or self care 11/22/2024 1:00 PM COMPO CONVEYOR OPERATOR Procedure visit [facility] [address] [facility] [address]th [place] [address] [place] [address] Anahi Nguyen Au.D. Sensorineural hearing loss, bilateral (Primary Dx); Encounter for adjustment and management of cochlear device 11/20/2024 Telephone [facility] Sched[facility] [address] [place] [address] Vickie Mason 11/13/2024 Orders Only [facility] [address], [address] [place] [address] Lizzeth Glaser NP Brain bleed (HCC) (Primary Dx) 11/08/2024 12:47 PM COMPO CONVEYOR OPERATOR - 11/08/2024 11:59 PM COMPO CONVEYOR OPERATOR Hospital Encounter [facility] [address] [place] [address] Brain bleed (HCC) Discharge Disposition: Discharge to home or self care 10/15/2024 9:45 AM COMPO CONVEYOR OPERATOR Office Visit [facility] Cardiology [address] [place] [address] Aron Ewing MD PVC's (premature ventricular contractions) (Primary Dx); Nonrheumatic mitral (valve) prolapse; Nonrheumatic aortic (valve) insufficiency; Essential hypertension; Cardiomegaly 10/08/2024 9:15 AM COMPO CONVEYOR OPERATOR Ancillary Procedure [facility] Cardiology [address] [place] [address] Nonrheumatic aortic (valve) insufficiency from Last 3 Months Allergies No known active allergies Medications atorvastatin (LIPITOR) 20 mg tablet Take 1 tablet (20 mg total) by mouth nightly 05/26/20 21 Active levothyroxine (SYNTHROID) 75 mcg tablet Take 1 tablet (75 mcg total) by mouth pocketbook maker before breakfast 05/26/20 21 Active alendronate (FOSAMAX) [...] while inpatient, resume as BP/HR allows. 08/22/20 Active bisacodyL (DULCOLAX) 10 mg suppositoryIndi cations:constip [...] 2 (two) times a day 08/22/20 24 025 Active aspirin 81 mg enteric coated tablet Take 1 tablet (81 mg total) by mouth every other day 025 Discontin ued(Thera py completed ) acetaminophen (TYLENOL) 325 mg tabletIndicatio ns:Fever,Pain Take 2 tablets (650 mg total) by mouth every 4 (four) hours as needed for pain 08/22/20 24 025 Discontin ued(Thera py completed ) Active Problems Problem Noted Date Diagnosed Date SAH (subarachnoid hemorrhage) 08/15/2024 PVC's (premature ventricular contractions) 11/16 Essential hypertension 11/16/2023 Cardiomegaly 11/16/2023 Nonrheumatic mitral (valve) prolapse 11/16/2023 Nonrheumatic aortic (valve) insufficiency 2023 Syncope and collapse 11/16/2023 Sensorineural hearing loss of both ears 07/15/20 21 Social History Tobacco Use Types Packs/Day Years [...] Comments Blood Pressure 136/62 12/20/2024 12:01 PM COMPO CONVEYOR OPERATOR Pulse 56 12/20/2024 12:01 PM COMPO CONVEYOR OPERATOR Temperature 36.4 C (97.5 F) 08/23/2024 11:13 AM CDT Respiratory Rate 18 12/20/2024 12:01 PM COMPO CONVEYOR OPERATOR Oxygen Saturation 100% 12/20/2024 12:01 PM COMPO CONVEYOR OPERATOR Inhaled Oxygen Concentration - - Weight 58.8 kg (129 lb 9.6 oz) 12/20/2024 12:01 PM COMPO CONVEYOR OPERATOR Height 162.6 cm (5' 4 ) 12/20/2024 12:01 PM COMPO CONVEYOR OPERATOR Body Mass Index 22.25 12/20/2024 12:01 PM COMPO CONVEYOR OPERATOR Plan of Treatment Not on file Medical Devices Implanted Type Area Trucking Manager Device Identifier Shelf Expiration Date Model / Serial / Lot Cochlear [employer] [id number] Implant Cochlear Cochlear Nucleus Profile Plus Slim Modiolar Electrode [id number] - [id number] - [id number] Implanted:Qty : 1 on 09/22/2021 by Tobias Roth MD at [facility] Left: Cochlea Cochle[employer] [id number] 08/24/2023 [id number] / [id number] / Procedures Procedure Name Priority Date/Time Associated Diagnosis Comments CT HEAD WO CONTRAST Schedule Routine, Read Routine (OP Routine) 12/20/2024 10:00 AM COMPO CONVEYOR OPERATOR Brain bleed (HCC) AUDBASE RESULTS 11/22/2024 12:44 PM COMPO CONVEYOR OPERATOR MRI BRAIN W WO CONTRAST MRA MRV HEAD WO CONTRAST Schedule Routine, Read Routine (OP Routine) 11/08/2024 2:46 PM COMPO CONVEYOR OPERATOR Brain bleed (HCC) TRANSTHORACIC ECHO (TTE) COMPLETE W DOPPLER/CF WO CONTRAST Routine 10/08/2024 10:26 AM COMPO CONVEYOR OPERATOR Nonrheumatic aortic (valve) insufficiency from Last 3 Months Results * CT Head WO Contrast (12/20/2024 10:00 AM COMPO CONVEYOR OPERATOR) Anatomical Region Laterality Modality Head and Neck N/A Computed Tomogra phy 12/20/2024 10:3 2 AM COMPO CONVEYOR OPERATOR Impressions 12/20/2024 10:32 AM COMPO CONVEYOR OPERATOR Artifact from the patient's left cochlear [...] Tanvi Cordero M.D. Narrative 12/20/2024 10:32 AM COMPO CONVEYOR OPERATOR EXAMINATION: CT head without contrast HISTORY: [...] Result * [facility] Results (11/22/2024 12:44 PM COMPO CONVEYOR OPERATOR) Provider Scanning AUDIOLOGY SERVICES ORDERABLES Final Result * MRI Brain W WO Contrast and MRA MRV Head WO Contrast (11/08/2024 2:46 PM COMPO CONVEYOR OPERATOR) Anatomical Region Laterality Modality Head and Neck N/A Magnetic Resonan ce 11/08/2024 3:47 PM COMPO CONVEYOR OPERATOR Impressions 11/08/2024 4:23 PM COMPO CONVEYOR OPERATOR 1. Artifact from the patient's left cochlear implant limits evaluation of adjacent structures across all sequences, greatest on diffusion and susceptibility sequences as well as MRA. 2. Decreased left frontal intraparenchymal hematoma compared to 08/17/2024 with surrounding vasogenic edema. CTA is recommended to better evaluate for vascular abnormality. Dictated by: Ai Christianson, DO The radiology attending physician has personally reviewed this study, and had reviewed and/or edited this written report and agrees with it. Electronically signed by: Aron Stuart M.D. Ph.D. Narrative 11/08/2024 4:23 PM COMPO CONVEYOR OPERATOR EXAMINATION: 1. Magnetic resonance imaging (MRI) of the brain and brainstem without and with contrast 2. Magnetic resonance angiography (MRA) of the obksfv-pv-Ytijor without contrast HISTORY: 84-year-old woman with history of renal cell carcinoma status post nephrectomy in 2019 admitted for left frontal intraparenchymal and subarachnoid hemorrhage. Follow up. TECHNIQUE: Multiplanar multi-weighted MRI of the brain and brainstem was performed without and with intravenous contrast using a custom brain protocol modified by the radiologist including a compressed sensing [facility] 2D T2-weighted SHYAM scan, given patient's cochlear implant device. Magnetic resonance angiography of the ywlwmi-xy-Wxbkcz was performed using a separate data acquisition with a non-contrast vvjl-km-hyspsg technique to produce axial thin-slice source images. [...] arteries in the head are patent. The bzexal-jo-Eltybb is complete. The anterior cerebral arteries are [...] 2. Magnetic resonance angiography (MRA) of the xzacpu-vw-Jfwddr without contrast HISTORY: 84-year-old woman with history of renal cell carcinoma status post nephrectomy in 2019 admitted for left frontal intraparenchymal and subarachnoid hemorrhage. Follow up. TECHNIQUE: Multiplanar multi-weighted MRI of the brain and brainstem was performed without and with intravenous contrast using a custom brain protocol modified by the radiologist including a compressed sensing [facility] 2D T2-weighted SHYAM scan, given patient's cochlear implant device. Magnetic resonance angiography of the mhdfjj-lh-Tfwnrb was performed using a separate data acquisition with a non-contrast whlg-te-iyojfo technique to produce axial thin-slice source images. [...] arteries in the head are patent. The vzkcsp-wx-Qapkzo is complete. The anterior cerebral arteries are [...] W DOPPLER/CF WO CONTRAST (10/08/2024 10:26 AM COMPO CONVEYOR OPERATOR) Anatomical Region Laterality Modality Ultrasound 10/08/2024 9:53 AM COMPO CONVEYOR OPERATOR Narrative 10/08/2024 10:43 AM COMPO CONVEYOR OPERATOR [facility] Cardiology [address], [place] [address] [address], [place] [address] P:[phone] P:[phone] Echocardiographic Report Patient Name: PATTI PATEL : 1940 Study Date: 10/08/2024 9:53:26 AM Gender: F Tech: RUDDY Location: [facility] Provider: PIA VERDE Height(Cm): 165 BSA: 1.64 [...] FINDINGS: Interpretation Site: Exam was interpreted at [facility]. Left Ventricle: Normal left ventricular systolic function. [...] regurgitation. Electronically Signed By: Dr. Michelle Peña [facility] 10/08/2024 10:42:16 AM COMPO CONVEYOR OPERATOR Procedure Note Michelle Peña MD - 10/08/2024 [facility] Medical [facility] Cardiology [address], [place] [address] [facility] [id number], [place] [address] P:[phone] P:[phone] Echocardiographic Report Patient Name: PATTI PATEL : 1940 Study Date: 10/08/2024 9:53:26 AM Gender: F Tech: Location: [facility] Provider: PIA VERDE Height(Cm): 165 BSA: 1.64 [...] [ 2.20 - 3.50 ] AV Peak Mri 2.52m/s [ 1.00 - 1.70 ] LVPWd [...] FINDINGS: Interpretation Site: Exam was interpreted at [facility]. Left Ventricle: Normal left ventricular systolic function. [...] regurgitation. Electronically Signed By: Dr. Michelle Peña [facility] 10/08/2024 10:42:16 AM COMPO CONVEYOR OPERATOR Pia Verde NP CV ECHO PROCEDURES Final Result from Last 3 Months Insurance MEDICARE SOLUTIONS [facility] MEDICARE Address: [address] [address] [place] [address] MEDICARE MEDICARE SOLUTIONS Advance Directives For more information, please contact: [phone] Documents on File Type Date Recorded Patient Electric Deicer Inspector Expl anation ADVANCE DIRECTIVE 09/22/2021 7:10 AM Shannan coffman Will * Full Code (Latest Code Status on File) Date Activated Date Inactivated Comments 08/15/2024 8:20 PM 08/23/2024 5:53 PM Care Teams Police Department Secretary Relationship Specialty Start Date End Date Amadeo Nava MD PCP - General Family Medicine 11/11/23
[2025-01-02 10:05] LABS: Alanine Aminotransferase 28 U/L (6-35); Albumin Level 4.4 g/dL (3.5-5.1); Alkaline Phosphatase 69 U/L (38-126); Anion Gap 13 mmol/L (4-12); Aspartate Amino Transferase 34 U/L (14-36); Bilirubin,Total 0.7 mg/dL (0.2-1.3); Blood Urea Nitrogen 21 mg/dL (7-17); Calcium 9.8 mg/dL (8.4-10.2); Carbon Dioxide 25 mmol/L (22-30); Chloride 98 mmol/L (98-107); Cholesterol 214 mg/dL (0-200); Estimated Glomerular Filt Rate 56; Glucose 97 mg/dL (65-110); HDL Direct 75 mg/dL; Potassium 4.4 mmol/L (3.4-5.0); Sodium 136 mmol/L (137-145); Triglycerides 79 mg/dL (<150)
[2025-01-02 10:16] LABS: LDL Cholesterol Direct 91 mg/dL
[2025-01-02 10:30] LABS: Free T4 Free Thyroxine 1.63 ng/dL (0.78-2.19); Vitamin D 25 Hydroxy 50.8 ng/mL
== END 2025-01-02 08:55 | disposition home or self-care (01) ==
LOC: ANHLAB 08:55
PROVIDERS: PCP Family Medicine; Visit Provider Internal Medicine Hematology & Oncology
DX: C64.1 Malignant neoplasm of right kidney, except renal pelvis (principal); E03.9 Hypothyroidism, unspecified; E55.9 Vitamin D deficiency, unspecified; N28.9 Disorder of kidney and ureter, unspecified; R74.8 Abnormal levels of other serum enzymes; R89.9 Unspecified abnormal finding in specimens from other organs, systems and tissues
CPT/HCPCS: 36415; 80047; 80053; 80061; 82306; 84439; 84443; 85025

== ENCOUNTER 2025-03-18 12:26 | Outpatient (CLI) | payer MEDICARE, SELFPAY ==
--- NOTE | ~2025-03-18 | DEXA_ITS ---
Bone Density Report Name: YUNG PATEL Age: 84 Sex: Female Ethnicity: White Date of : 1940 Indication: osteopenia; monitoring treatment; height loss; cancer; Referring Provider: Yojana Shah Study: Bone densitometry was performed. Exam Date: March 18, 2025 Accession number: [id number] Bone Density: Region BMD T-score Z-score Classification AP Spine(L1, L2) 1.103 1.1 3.8 Normal Femoral Neck (Left) 0.657 -1.7 0.8 Osteopenia Total Hip (Left) 0.776 -1.4 1.0 Osteopenia Femoral Neck (Right) 0.656 -1.7 0.8 Osteopenia Total Hip (Right) 0.733 -1.7 0.6 Osteopenia Total Hip Mean 0.754 -1.6 0.8 Osteopenia World Health Organization criteria for BMD impression classify patients as: Normal (T-score at or above -1.0), Osteopenia (T-score between -1.0 and -2.5), or Osteoporosis (T-score at or below -2.5). 10-year Fracture Risk: FRAX not reported because: Treated for osteoporosis Previous Exams: -- Region Exam Age BMD T-score BMD Change BMD Change Date g/cm2 vs Baseline vs Previous -- AP Spine (L1-L2) 03/18/2025 84 1.103 1.1 -1.7% -1.7% 02/23/2023 82 1.122 1.3 Total Hip(Left) 03/18/2025 84 0.776 -1.4 -1.7% -1.7% 02/23/2023 82 0.789 -1.3 Total Hip(Right) 03/18/2025 84 0.733 -1.7 -1.4% -1.4% 02/23/2023 82 0.743 -1.6 -- *Denotes significance at 95% confidence level, LSC for AP Spine = 0.022 g/cm2, LSC for Total Hip = 0.027 g/cm2 Clinical Information Provided by Patient: Is being treated for osteoporosis Has used the following medications: Fosamax (i.e. alendronate), HRT (i.e. estrogen/hormone therapy), Vitamin D, Calcium Has the following medical conditions: Cancer, HX OF RIGHT KIDNEY Patient maximum height was 65.5 Menopause Age: 48 No regular weight bearing exercise Drinks caffeinated beverages Onset of menses at age 11 Number of children 2 Impression: The patient has low bone mass, based on the Right Total Hip T-score. No significant bone loss was observed. Discussion: PATIENT UNDER TREATMENT WITH NO SIGNIFICANT BMD LOSS SINCE LAST EXAM. In an untreated patient, BMD typically declines with age. A lack of decline or gain is usually a sign that treatment is efficacious and fracture risk is reduced. It is important to ask patients whether they are taking their medications and to encourage continued and appropriate compliance with their osteoporosis therapies to reduce fracture risk. It is also important to review their risk factors and encourage appropriate calcium and vitamin D intakes, exercise, fall prevention and other lifestyle measures. Follow-Up: Consider a repeat BMD and Vertebral Fracture Assessment (VFA) exam in 2 years or sooner if medically necessary, to reassess this patient's status. Reported by: CHERELLE on 03/20/2025 8:58:00 AM. Reviewed, dictated and finalized at location A.
== END 2025-03-18 12:27 | disposition home or self-care (01) ==
LOC: MICIMG 12:28
PROVIDERS: PCP Nurse Practitioner Family; Visit Provider Nurse Practitioner Family
DX: M81.0 Age-related osteoporosis without current pathological fracture (principal); M85.852 Other specified disorders of bone density and structure, left thigh; M85.851 Other specified disorders of bone density and structure, right thigh
CPT/HCPCS: 77080

== ENCOUNTER 2025-06-17 13:59 | Outpatient (CLI) | payer MEDICARE, SELFPAY ==
--- NOTE | ~2025-06-17 | MM_ITS ---
EXAMINATION: MM screening francine BI w jessie HISTORY: Screening mammogram TECHNIQUE: Craniocaudal and mediolateral oblique 3-D tomosynthesis images were obtained and synthetic 2-D images were generated. CAD analysis was submitted and interpreted. COMPARISON: 05/18/2024, 03/17/2023 BREAST PARENCHYMAL COMPOSITION:Dense: The breasts are heterogeneously dense, which may obscure small masses. FINDINGS: No suspicious mass, calcification, or architectural distortion are identified in either rebeca ast to suggest malignancy. There has been no suspicious interval change. IMPRESSION: No mammographic evidence of malignancy. Recommend routine screening mammography in one year. BI-RADS Category 1: Negative Reviewed, dictated and finalized at location .
--- OUTSIDE RECORDS SUMMARY | 2025-06-17 15:09 | XMS_ITS | Clinical Summary ---
Author Organization [facility] Address [address] [place] [address] Care Team Providers Care Coke Loader Name Role Phone Amadeo Nava MD Primary Care Provider [phone] Allergies No known active allergies Medications atorvastatin (LIPITOR) 20 mg tablet Take 1 tablet (20 mg total) by mouth nightly 1 Active levothyroxine (SYNTHROID) 75 mcg tablet Take 1 tablet (75 mcg total) by mouth cut roll machine offbearer before breakfast 1 Active alendronate (FOSAMAX) 70 mg tablet Take 1 tablet (70 mg total) by mouth every 7 days Tuesday 1 Active CALCIUM ORAL Take 1 Dose by mouth nightly Active MULTIVITAMIN ORAL Take 1 Dose by mouth nightly Active valsartan (DIOVAN) 160 mg tablet Take 1 tablet (160 mg total) by mouth every morning 1 Active ferrous sulfate 325 mg (65 mg of elemental iron) tablet Take 1 tablet (325 mg total) by mouth nightly Active omega-3 fatty acids-fish oil 360-1,200 mg capsule Take 1 capsule by mouth nightly Active acebutoloL (SECTRAL) 200 mg capsuleIndicati ons:hypertensio n Take 1 capsule (200 mg total) by mouth nightly HELD while inpatient, resume as BP/HR allows. 4 Active bisacodyL (DULCOLAX) 10 mg suppositoryIndi cations:constip ation Insert 1 suppository (10 mg total) into the rectum daily as needed for constipation 4 Active docusate sodium (COLACE) 100 mg capsuleIndicati ons:constipatio n,Stool Softener Take 1 capsule (100 mg total) by mouth 2 (two) times a day 4 Active polyethylene glycol (MIRALAX) 17 gram/dose bulk powderIndicatio ns:constipation Take 17 g by mouth daily as needed (constipation) 4 Active polyvinyl alcohol-povidon e (REFRESH CLASSIC) 1.4-0.6 % dropperette Administer 1 drop into both eyes 3 (three) times a day as needed for dry eyes 4 Active senna (SENOKOT) 8.6 mg tabletIndicatio ns:constipation Take 1 tablet by mouth 2 (two) times a day 4 08/22/20 25 Active magnesium sulfate (EPSOM SALTS) 495 mg/5 gram granules Take by mouth Ac tive minocycline (MINOCIN,DYNACI N) 100 mg capsule TAKE 1 CAPSULE BY MOUTH TWICE DAILY FOR 14 DAYS. AVOID DAIRY WITHIN THE HOUR OF TAKING 5 Active Active Problems Problem Noted Date Diagnosed Date Nonrheumatic aortic valve stenosis 04/23/2025 Mixed hyperlipidemia 04/23/2025 SAH (subarachnoid hemorrhage) 08/15/2024 PVC's (premature ventricular contractions) 11/16 Essential hypertension 11/16/2023 Cardiomegaly 11/16/2023 Nonrheumatic mitral (valve) prolapse 11/16/2023 Nonrheumatic aortic (valve) insufficiency 2023 Syncope and collapse 11/16/2023 Sensorineural hearing loss of both ears 07/15/20 21 Encounters Date Type Department Care Team Description 06/13/2025 3:00 PM CDT Office Visit [facility] Neurosurgery [address], [address] [place] [address] Lizzeth Glaser, PERSONALIZED LIVING MANAGER Intraparenchymal hemorrhage of brain (HCC) (Primary Dx) 06/13/2025 12:43 PM CDT - 06/13/2025 11:59 PM CDT Hospital Encounter [facility] [place] [address] [place] [address] Intraparenchymal hemorrhage of brain (HCC) Discharge Disposition: Discharge to home or self care 06/13/2025 Telephone [facility] Neurosurgery [address], [address] [place] [phone] Lizzeth Glaser NP 05/02/2025 Telephone [facility] Neurosurgery [facility] [facility] [facility] [address], [address] [place] [phone] Lizzeth Glaser NP 04/30/2025 1:45 PM CDT Office Visit [facility] Neurosurgery [facility] [address], [address] [place] [phone] Lizzeth Glaser NP Intraparenchymal hemorrhage of brain (HCC) (Primary Dx) 04/30/2025 11:07 AM CDT - 04/30/2025 11:59 PM CDT Hospital Encounter [facility] [place] [address] [place] [address] Brain bleed (HCC) Discharge Disposition: Discharge to home or self care 04/30/2025 Telephone [facility] Neurosurgery [facility] [address], [address] [place] [phone] Lizzeth Glaser NP 04/23/2025 8:45 AM CDT Office Visit [facility] Cardiology [address] [place] [phone] Aron Ewing MD Nonrheumatic aortic valve stenosis (Primary Dx); Essential hypertension; Nonrheumatic aortic (valve) insufficiency; Nonrheumatic mitral (valve) prolapse; Syncope and collapse; Mixed hyperlipidemia from Last 3 Months Surgical History Surgery [...] Sign Reading Time Taken Comments Blood Pressure 146/85 06/13/2025 2:08 PM CDT Pulse 57 06/13/2025 2:08 PM CDT Temperature 36.6 C (97.8 F) 04/30/2025 1:38 PM CDT Respiratory Rate 18 04/30/2025 1:38 PM CDT Oxygen Saturation 97% 06/13/2025 2:08 PM CDT Inhaled Oxygen Concentration - - Weight 59.5 kg (131 lb 3.2 oz) 06/13/2025 2:08 P M CDT Height 162.6 cm (5' 4) 06/13/2025 2:08 PM CDT Body Mass Index 22.52 06/13/2025 2:08 PM CDT Plan of Treatment Health Maintenance Due Date Last Done Comments Osteoporosis Screening-Bone Density Scan 1938 DTaP/Tdap/Td Vaccine (1 - Tdap) 1949 Hepatitis B Screening 1956 Pneumococcal vaccine 65+ (1 of 2 - PCV) 1957 Zoster Vaccine (1 of 2) 1988 Well Visit 65+ 2003 Covid-19 Vaccine (3 - season) 07/01/202402/2021, 12/12/2020 Influenza Vaccine (#1) 2025 07/17/2019, 2017 Depression Screening 08/15/2025 08/15/2024 Fall Risk Assessment 08/23/2025 08/23/2024 Medical Devices Implanted Type Area Pole Incisor Operator Device Identifier Shelf Expiration Date Model / Serial / Lot Cochlear Kinseys [id number] Implant Cochlear Cochlear Nucleus Profile Plus Slim Modiolar Electrode [id number] - [id number] - [id number] Implanted:Qty : 1 on 09/22/2021 by Tobias Roth MD at [facility] Medicine Left: Cochlea [employer]chle[employer] [id number] 08/24/2023 [id number] / [id number] / Procedures Procedure Name Priority Date/Time Associated Diagnosis Comments CTA HEAD W WO CONTRAST Schedule Routine, Read Routine (OP Routine) 06/13/2025 1:04 PM CDT Intraparenchymal hemorrhage of brain (HCC) POCT CREATININE - DEVICE Routine 06/13/2025 12:[address] HEAD WO CONTRAST Schedule Routine, Read Routine (OP Routine) 04/30/2025 11:15 AM CDT Brain bleed (HCC) from Last 3 Months Results * CTA Head W WO Contrast (06/13/2025 1:04 PM CDT) Anatomical Region Laterality Modality Head and Neck N/A Computed Tomogra phy 06/13/2025 3:17 PM CDT Impressions 06/13/2025 5:07 PM CDT 1. Slight increase in volume of hyperdensity within the left middle frontal gyrus, favor dystrophic calcification from evolution of the previously described intraparenchymal hematoma rather than significant acute recurrent hemorrhage. Recommend follow-up MRI of brain to compare with prior study from 11/08/2024 to assess for interval progression. 2. No intracranial AVM or aneurysm identified. The results were discussed with Lizzeth Glaser NP by Dr. Pete Avila M.D. on 06/13/2025 2:20 PM. Dictated by: Ammon Underwood M.D. The radiology attending physician has personally reviewed this study, and had reviewed and/or edited this written report and agrees with it. Electronically signed by: Pete Avila MD Narrative 06/13/2025 5:07 PM CDT EXAMINATION: Computed tomography angiography (CTA) of the head without and with contrast HISTORY: 84-year-old woman who was initially found down and had a left frontal IPH, follow-up for progression. TECHNIQUE: CT of the head was performed with images acquired from skull base to vertex without intravenous contrast. Computed tomographic angiography was obtained from the skull base to the vertex following the uneventful administration of intravenous contrast. 3D images of the CTA were generated on a dedicated workstation/sql server dba developer. Contrast information: 93 mL Optiray-350 IV COMPARISON: CT head 04/30/2025, MRI brain 11/08/2024, CTA 08/15/2024 FINDINGS: HEAD: Ill-defined hyperdensity along the left middle frontal gyrus which appears slightly more hyperdense compared to CT dated 04/30/2025. Subjacent subcortical and and deep white matter hypodensity consistent with gliosis with associated ex vacuo dilatation of the left frontal horn. There is underlying hypodensity around the ventricles which is consistent with small vessel ischemic disease. No mass effect or midline shift is present. The palomo-white matter differentiation is normal. Bilateral lens replacements The visualized portions of the mastoids are normal. Mild mucosal thickening in the bilateral maxillary sinuses and ethmoid air cells. No fractures are identified. CTA: The visualized course and caliber of the internal carotid arteries in the head are normal. Mild atherosclerotic calcification of the bilateral cavernous segments of the internal carotid arteries without significant stenosis. The [id number]-[id number] is complete. The anterior and middle cerebral arteries are normal. The vertebral arteries are codominant. The basilar artery is normal. The posterior cerebral arteries are normal. There is no aneurysm or vascular malformation identified. There is no increased vascularity surrounding the intraparenchymal hemorrhage. Procedure Note Pete Avila MD - 06/13/2025 EXAMINATION: Computed tomography angiography (CTA) of the head without and with contrast HISTORY: 84-year-old woman who was initially found down and had a left frontal IPH, follow-up for progression. TECHNIQUE: CT of the head was performed with images acquired from skull base to vertex without intravenous contrast. Computed tomographic angiography was obtained from the skull base to the vertex following the uneventful administration of intravenous contrast. 3D images of the CTA were generated on a dedicated workstation/sql server dba developer. Contrast information: 93 mL Optiray-350 IV COMPARISON: CT head 04/30/2025, MRI brain 11/08/2024, CTA 08/15/2024 FINDINGS: HEAD: Ill-defined hyperdensity along the left middle frontal gyrus which appears slightly more hyperdense compared to CT dated 04/30/2025. Subjacent subcortical and and deep white matter hypodensity consistent with gliosis with associated ex vacuo dilatation of the left frontal horn. There is underlying hypodensity around the ventricles which is consistent with small vessel ischemic disease. No mass effect or midline shift is present. The palomo-white matter differentiation is normal. Bilateral lens replacements The visualized portions of the mastoids are normal. Mild mucosal thickening in the bilateral maxillary sinuses and ethmoid air cells. No fractures are identified. CTA: The visualized course and caliber of the internal carotid arteries in the head are normal. Mild atherosclerotic calcification of the bilateral cavernous segments of the internal carotid arteries without significant stenosis. The [id number] is complete. The anterior and middle cerebral arteries are normal. The vertebral arteries are codominant. The basilar artery is normal. The posterior cerebral arteries are normal. There is no aneurysm or vascular malformation identified. There is no increased vascularity surrounding the intraparenchymal hemorrhage. IMPRESSION: 1. Slight increase in volume of hyperdensity within the left middle frontal gyrus, favor dystrophic calcification from evolution of the previously described intraparenchymal hematoma rather than significant acute recurrent hemorrhage. Recommend follow-up MRI of brain to compare with prior study from 11/08/2024 to assess for interval progression. 2. No intracranial AVM or aneurysm identified. The results were discussed with Lizzeth Glaser NP by Dr. Pete Avila M.D. on 06/13/2025 2:20 PM. Dictated by: Ammon Underwood M.D. The radiology attending physician has personally reviewed this study, and had reviewed and/or edited this written report and agrees with it. Electronically signed by: Peet Avila MD us Lizzeth Glaser NP IMG CT PROCEDURES Final Result * (ABNORMAL) POCT creatinine (06/13/2025 12:53 PM CDT) Creatinine POC 1.4(H) 0.6 - 1.1 mg/dL Blood 06/13/2025 12:5 3 PM CDT 06/13/2025 12:53 PM CDT us Lizzeth Glaser NP LAB POCT ORDERABLES - DEVICE F inal Result [facility] Department [place] [address] * CT Head WO Contrast (04/30/2025 11:15 AM CDT) Anatomical Region Laterality Modality Head and Neck N/A Computed Tomogra phy 04/30/2025 1:10 PM CDT Addenda Addendum by Les Alcala MD PhD on 04/30/2025 1:22 PM CDT The Non Critical results were discussed with Lizzeth Glaser NP by Maureen Mendez Oil Well Directional Surveyor on 04/30/2025 at 13:18 HEEL SLICKER Edited by: Maureen Mendez Electronically signed by: Les Alcala MD, PHD Impressions 04/30/2025 1:10 PM CDT Evolving intraparenchymal hematoma in the left middle frontal gyrus, where there is increased hyperattenuation in one gyrus, likely acute blood. Evidence of the severe small vessel disease. Electronically signed by: Les Alcala MD, PHD Narrative 04/30/2025 1:10 PM CDT EXAMINATION: CT head without contrast HISTORY: [facility] TECHNIQUE: CT of the head was performed with images acquired from skull base to vertex without intravenous contrast. COMPARISON: 12/20/2024 FINDINGS: Evolving intraparenchymal hematoma in the left middle frontal gyrus, where there is increased hyperattenuation in one gyrus, likely acute blood. Confluent hypodensities in the periventricular and subcortical white matter are nonspecific, likely on the basis of chronic small vessel ischemic change. There is parenchymal volume loss. Ventricles are of normal size and morphology. No mass effect or midline shift is present. The palomo-white matter differentiation is normal. The visualized portions of the orbits are normal. The visualized portions of the mastoids are normal. The visualized portions of the paranasal sinuses are normal. No fractures are identified. Procedure Note Les Alcala MD PhD - 04/30/2025 EXAMINATION: CT head without contrast HISTORY: IPH TECHNIQUE: CT of the head was performed with images acquired from skull base to vertex without intravenous contrast. COMPARISON: 12/20/2024 FINDINGS: Evolving intraparenchymal hematoma in the left middle frontal gyrus, where there is increased hyperattenuation in one gyrus, likely acute blood. Confluent hypodensities in the periventricular and subcortical white matter are nonspecific, likely on the basis of chronic small vessel ischemic change. There is parenchymal volume loss. Ventricles are of normal size and morphology. No mass effect or midline shift is present. The palomo-white matter differentiation is normal. The visualized portions of the orbits are normal. The visualized portions of the mastoids are normal. The visualized portions of the paranasal sinuses are normal. No fractures are identified. IMPRESSION: Evolving intraparenchymal hematoma in the left middle frontal gyrus, where there is increased hyperattenuation in one gyrus, likely acute blood. Evidence of the severe small vessel disease. Electronically signed by: Les Alcala MD, PHD Lizzeth Glaser NP IM CT PROCEDURES Edited Resul t - Final from Last 3 Months Insurance [facility] ADVANTAGE MEDICARE [facility] AD[facility] Advance Directives For more information, please contact: [phone] Documents on File Type Date Recorded Patient Account Installation Specialist Expl anation ADVANCE DIRECTIVE 09/22/2021 7:10 AM Shannan Pfeiffer * Full Code (Latest Code Status on File) Date Activated Date Inactivated Comments 08/15/2024 8:20 PM 08/23/2024 5:53 PM Care Teams Coke Loader Relationship Specialty Start Date End Date Amadeo Nava MD PCP - General Family Medicine 11/11/23
--- OUTSIDE RECORDS SUMMARY | 2025-06-17 15:09 | XMS_ITS | Clinical Summary ---
Author Organization [facility] Gregg Robb Address [address] [place] [address] Care Team Providers Care Technical Writer And Editor Name Role Phone Amadeo Nava MD Primary Care Provider [phone] Allergies No known active allergies Medications HYDROcodone-yoni [...] of water, stay upright 30 min Active calcium as carbonate (CALTRATE) 1,500 mg (600 mg elemental) Tablet Take by mouth. Activ e Fish Oil-[place]-3 Fatty Acids 360-1,200 mg Capsule Take 1 Capsule by mouth. Active cholecalciferol , Vitamin D3, (VITAMIN D3) 25 mcg (1,000 unit) Capsule Take by mouth daily. Active multivitamin (DAILY-KARLO) tablet Take 1 Tablet by mouth daily. Active clotrimazole-be tamethasone (LOTRISONE) 1-0.05 % Cream APPLY TOPICALLY TO THE AFFECTED AREA TWICE DAILY 1 Active valsartan (DIOVAN) 160 mg tablet Active ferrous sulfate 325 mg (65 mg iron) tablet Take 325 mg by mouth daily. Active magnesium sulfate, laxative, (EPSOM SALTS) 495 mg/5 gram Granules Take by mouth. Activ e Active Problems Problem Noted Date Diagnosed Date Renal cell carcinoma of right kidney 11/05/2020 Encounters Date Type Department Care Team Description 06/04/2025 External Device Data STL ABSTRACTION Provider, Abstract 05/15/2025 External Device Data ST[facility] ABSTRACTION Provider, Abstract 05/14/2025 External Device Data STL ABSTRACTION Provider, Abstract from Last 3 Months Family History Medical [...] on file Legal Sex Female 9:40 AM STICK ROLLER Gender Identity Not on file Sexual Orientation Not on file Last Filed Vital Signs Vital Sign Reading Time Taken Comments Blood Pressure 105/61 01/02/2025 9:19 AM STICK ROLLER Pulse 58 01/02/2025 9:19 AM STICK ROLLER Temperature 36.1 C (97 F) 01/02/2025 9:19 AM STICK ROLLER Respiratory Rate 14 01/02/2025 9:19 AM STICK ROLLER Oxygen Saturation 92% 01/02/2025 9:19 AM STICK ROLLER Inhaled Oxygen Concentration - - Weight 57.5 kg (126 lb 12.8 oz) 01/02/2025 9:19 AM STICK ROLLER Height 165.1 cm (5' 5) 07/15/2022 10:0 2 AM CDT Body Mass Index 21.1 07/15/2022 10:02 AM CDT Plan of Treatment Upcoming Encounters Date Type Department Care Team (Late st Contact Info) Description 01/09/2026 10:00 AM CDT Office Visit [facility] Oncology and Hematology - [place] M [address] [place] [address] Salvador Crabtree MD [address] [address] [place] [address] Health Maintenance Due Date Last Done Comments DTAP/TDAP/TD VACCINES (1 - Tdap) 1957 PNEUMOCOCCAL VACCINE 50+ YEARS (1 of 1 - PCV) 10/10/19 88 ZOSTER VACCINE (1 of 2) 1988 OSTEOPOROSIS SCREENING 2003 RSV VACCINE (60+ or ) (1 - 1-dose 75+ series) 2013 INFLUENZA VACCINE (#1) 2025 Insurance [facility] [id number] Care Teams Technical Writer And Editor Relationship Specialty Start Date End Date Amadeo Nava MD [address] [place] [address] PCP - General Family Practice 07/06/22
== END 2025-06-17 14:00 | disposition home or self-care (01) ==
LOC: ANHIMG 14:00
PROVIDERS: PCP Nurse Practitioner Family; Visit Provider Family Medicine
DX: Z12.31 Encounter for screening mammogram for malignant neoplasm of breast (principal)
CPT/HCPCS: 77063; 77067